=== PATIENT | male | born 1960 | race Caucasian/White ===

== ENCOUNTER 2023-11-05 05:29 | Inpatient (IN) | payer OTHER, SELFPAY ==
[2023-11-05] VITALS (32 sets, daily range): BP systolic 98–136; BP diastolic 53–94; PULSE 75–110; RESP 17–37; TEMP 36.1–36.7; O2SAT 77–100; BMI 38.0
--- NOTE | 2023-11-05 | ECHO_ITS ---
Patient Info Name: Joaquim Garcia Age: 63 years : 1960 Gender: Male Ht: 72 in Wt: 279 lbs BSA: 2.58 m2 HR: 93 bpm BP: 111 / 65 mmHg Heart Rhythm: Sinus Rhythm Technical Quality: Poor Exam Date: 11/05/2023 4:21 PM Exam Location: Echo Lab Patient Status: Inpatient Admit Date: 11/05/2023 Staff Ordering Physician: Ruchi Oliver APRN Cigarette Machines Mechanic: Jackson Martins RDCS Attending Provider: Monty White MD Referring Physician: Melody BURK; Exam Type: CA echo dop color flow w con Study Info Indications J90 - Pleural effusion, not elsewhere classified R06.02 - Shortness of breath - eLEVATED bnp Complete two-dimensional, color flow and Doppler transthoracic echocardiogram is performed with contrast to opacify the left ventricle and to improve the deliniation of the left ventricle endocardial borders. Contrast/Agitated Saline Contrast/Ag. Saline: Definity Amount: 3.00 ml Existing IV Access: Yes IV Access Condition: patent with no signs of infiltration Reason for Poor Study: poor patient cooperation Summary 1. Technically challenging exam, definity contrast used to improve visualization. 2. Left ventricular hypertrophy with well-preserved systolic function and grade 1 diastolic noncompliance. 3. Poorly visualized right ventricle which appears to be moderately enlarged. 4. Biatrial dilation. 5. Small amount of mitral and tricuspid regurgitation. Left Ventricle Left ventricular chamber dimension is normal. Left ventricular systolic function is normal, estimated at Empty. There is mild concentric increased left ventricular wall thickness. The left ventricular diastolic function is grade I diastolic dysfunction. Right Ventricle Right ventricular chamber dimension is moderately enlarged. Left Atria Left atrial chamber dimension is mildly enlarged. Right Atria Right atrial chamber dimension is mildly enlarged. Aortic Valve The aortic valve is normal. Pulmonic Valve The pulmonic valve is not well visualized. Mitral Valve The mitral valve has normal leaflets. The mitral valve annulus is mildly calcified. Tricuspid Valve The tricuspid valve leaflets are normal. There is mild tricuspid valve regurgitation. Pericardium/Pleural The pericardium appears normal. Aorta The aortic root size at the sinus of Valsalva is normal. Left Ventricular Outflow Tract Name Value Normal LVOT 2D LVOT Diameter 2.11 cm LVOT Doppler LVOT Peak Gradient 6 mmHg LVOT Mean Gradient 3 mmHg LVOT VTI 26.92 cm LVOT VTI/AV VTI Ratio 1.16 LVOT Stroke Volume 94.10 ml LVOT CO 7.49 l/min LVOT CI 2.90 L/min/m2 Pulmonic Valve Name Value Normal PV Doppler PV Peak Gradient 5 mmHg Mitral Valve
--- NOTE | ~2023-11-05 | US_ITS ---
EXAMINATION: US thoracentesis DATE: 11/05/2023 15:41 INDICATION: Right pleural effusion. Hypoxia. TECHNIQUE: The procedure and its risks and benefits were discussed with the patient. Potential risks discussed included bleeding, infection, and pneumothorax. The patient understood the risks and agreed to proceed. The skin was prepped and draped in sterile fashion. 1% lidocaine was used for local anes thesia. Under ultrasound guidance, a 5 Fr catheter with trochar was advanced into the right pleural e ffusion. Fluid was aspirated. The catheter was removed, and a dressing was applied. There were no imm ediate complications. FINDINGS: Ultrasound images demonstrate a small right pleural effusion and the catheter within the fluid. IMPRESSION: 1. Successful ultrasound-guided thoracentesis yielding 700 mL of clear yellow fluid. Reviewed, dictated and finalized at location A.
--- NOTE | ~2023-11-05 | XR_ITS ---
EXAMINATION: XR chest 1V portable DATE: 11/10/2023 10:25 INDICATION: Shortness of breath. High oxygen requirement. TECHNIQUE: A single frontal view of the chest was obtained. COMPARISON: Chest 2 view 11/07/2023, CT abdomen and pelvis 11/05/2023 FINDINGS: There are small pleural effusions. There are airspace opacities at the lung bases. No pneum othorax. The heart size is normal. IMPRESSION: 1. Small pleural effusions. 2. Airspace opacities at the lung bases with improvement on the right, likely atelectasis. Reviewed, dictated and finalized at location A. IMPRESSION: 1. Small pleural effusions. 2. Airspace opacities at the lung bases with improvement on the right, likely a telectasis.
--- NOTE | ~2023-11-05 | XR_ITS ---
EXAMINATION: XR chest 1V portable DATE: 11/15/2023 05:28 INDICATION: Atelectasis and pleural effusion TECHNIQUE: frontal view of the chest was obtained. COMPARISON: Chest radiograph dated 11/12/[address] dated 11/13/2023 FINDINGS: Decrease in the diffuse hazy opacities throughout the right hemithorax consistent with decreased now very small right pleural effusion. There is also a persistent very small left pleural effusion. There is also been some improved aeration in the previously collapsed right middle lobe. Residual opacitie s in the right middle lobe and at the left lower lung zone which could represent atelectasis or pneum onia. No pneumothorax. Heart size is within normal limits for AP technique. IMPRESSION: 1. Very small bilateral pleural effusions with interval decrease on the right. 2. Improved aeration of the previously collapsed right middle lobe with persistent opacity in the low er lung zones which could represent atelectasis or pneumonia. Reviewed, dictated and finalized at location A. IMPRESSION: 1. Very small bilateral pleural effusions with interval decrease on the right. 2. Improved aeration of the previously collapsed right middle lobe with persist ent opacity in the lower lung zones which could represent atelectasis or pneumo germaine.
--- NOTE | ~2023-11-05 | XR_ITS ---
EXAMINATION: XR chest 1V portable DATE: 11/07/2023 09:51 INDICATION: Pulmonary edema. TECHNIQUE: A single frontal view of the chest was obtained. COMPARISON: Chest single view 11/06/2023, CT abdomen and pelvis 11/05/2023 FINDINGS: There are airspace opacities in right middle lobe. There is mild atelectasis at left lung b ase. No pleural effusion or pneumothorax. The heart size is normal. IMPRESSION: 1. Persistent airspace opacities in right lung middle lobe, consistent with atelectasis versus pneumo germaine. Reviewed, dictated and finalized at location A. IMPRESSION: 1. Persistent airspace opacities in right lung middle lobe, consistent with ate lectasis versus pneumonia.
--- NOTE | ~2023-11-05 | CT_ITS ---
EXAMINATION: CT cervical spine wo con DATE: 11/05/2023 08:08 INDICATION: Neck pain after multiple falls. TECHNIQUE: Computed tomography (CT) of the cervical spine was performed without intravenous contrast. The dose-length product was 509 mGy-cm. Automated exposure control and iterative reconstruction tech nique were employed. COMPARISON: None FINDINGS: There is multilevel degenerative disc disease at C4-5, C5-6, C6-7 and C7-T1. There is degen erative anterolisthesis at C4-5. Mild levocurvature of the cervical spine. Odontoid process within no rmal limits. No evidence for perched facet. Craniovertebral junction within normal limits. Small righ t pleural effusion. IMPRESSION: 1. No acute abnormality of the cervical spine. 2: Right pleural effusion. Reviewed, dictated and finalized at location B.
--- NOTE | ~2023-11-05 | CT_ITS ---
EXAMINATION:CT diagnostic chest wo con DATE: 11/13/2023 13:51 INDICATION: Pleural effusion. TECHNIQUE: Computed tomography (CT) of the chest was performed without intravenous contrast. Automate d exposure control and iterative reconstruction technique were employed. The dose-length product (DLP ) was 591.98 mGy-cm. COMPARISON: Chest CT 11/05/2023 FINDINGS: There is complete collapse of right middle lobe. There is mild atelectasis bilaterally. The re is a pneumatocele left upper lobe. There are groundglass nodules in the lungs bilaterally with smo oth septal thickening, consistent with mild pulmonary edema. There are moderate-sized right and small left pleural effusions. Cardiomegaly is noted. There are coronary artery calcifications. No pericard ial effusion. There are gallstones in the gallbladder, which is normal in size. There is a 1.8 cm hem orrhagic cyst in left kidney. There is mild thoracic spondylosis. There are bridging endplate osteoph ytes at multiple levels in the spine, consistent with diffuse idiopathic skeletal hyperostosis (DISH) . IMPRESSION: 1. Mild pulmonary edema. 2. Worsened complete collapse of right middle lobe. 3. Moderate-sized right and small left pleural effusions. Reviewed, dictated and finalized at location A.
--- NOTE | ~2023-11-05 | XR_ITS ---
EXAMINATION: [id number] DATE: 11/05/2023 15:56 INDICATION: Right pleural effusion status post thoracentesis. TECHNIQUE: A single frontal view of the chest was obtained. COMPARISON: CT abdomen and pelvis 11/05/2023 FINDINGS: There are airspace opacities in right lower lung zone. No pleural effusion or pneumothorax. Cardiomegaly is noted. IMPRESSION: 1. Airspace opacities in right lower lung zone, consistent with atelectasis versus pneumonia. 2. Cardiomegaly. Reviewed, dictated and finalized at location A. IMPRESSION: 1. Airspace opacities in right lower lung zone, consistent with atelectasis kana yojana pneumonia. 2. Cardiomegaly.
--- NOTE | ~2023-11-05 | CT_ITS ---
EXAMINATION: CT BRAIN W/O DATE: 11/05/2023 08:08 INDICATION: Status post fall. Patient found down. TECHNIQUE: Computed tomography (CT) of the head was performed without intravenous contrast. The dose- length product was 605.33 mGy-cm. Automated exposure control and iterative reconstruction technique w ere employed. COMPARISON: No prior studies for comparison. FINDINGS: Normal brain parenchymal volume for age. Normal patton-white differentiation. No acute intrac ranial hemorrhage, infarction, mass or mass effect. No ventriculomegaly or midline shift. Midline sagittal images demonstrate a normal corpus callosum, c raniovertebral junction and sella turcica. Basilar cisterns are patent. Paranasal sinuses and mastoids are pneumatized. No depressed skull fractures. IMPRESSION: 1. No acute intracranial abnormality. Reviewed, dictated and finalized at location B.
--- NOTE | ~2023-11-05 | US_ITS ---
EXAMINATION: US abdomen limited DATE: 11/10/2023 16:49 INDICATION: Ascites TECHNIQUE: Multiple grayscale and Doppler ultrasound images of limited portions of the abdomen were o btained. COMPARISON: None available. FINDINGS: The visualized portions of the pancreas are normal. The liver is normal in size with slight ly heterogeneous echotexture. Suggestion of mild surface nodularity. Normal hepatopetal flow in the m ain portal vein. The gallbladder is minimally distended which limits evaluation. Shadowing dependent echogenicities in the gallbladder lumen likely representing stones. The common bile duct measures 6 m m. There was no sonographic Oneill sign. Small volume fluid in the right upper and left lower quadran ts. IMPRESSION: Possible cirrhotic changes. Cholelithiasis. Mild ascites. Reviewed, dictated and finalized at location K.
--- NOTE | ~2023-11-05 | CT_ITS ---
Clinical Indication: Shortness of breath CT Scan of the Chest with Contrast: Technique: Contiguous sections were acquired throughout the chest after intravenous administration of 100 cc of Omnipaque 350. Dose reduction technique was used on this scan by utilizing automated expos ure control and iterative reconstruction technique. The dose-length product (DLP) was 741.11 mGy-cm. Findings: There is no evidence of any significant mediastinal, hilar or axillary lymphadenopathy. There is no f illing defect in the pulmonary arterial tree to suggest pulmonary embolus. There is no evidence of ao rtic dissection or aneurysm. No pericardial effusion. Moderate right pleural effusion present, with right middle lobe atelectatic change. No left pleural e ffusion. Left lung clear. Images through the upper abdomen reveal small amount of abdominal ascites. Impression: No evidence of pulmonary embolus, aortic dissection, or aortic aneurysm. Moderate right pleural effusion with extensive right middle lobe atelectasis. Reviewed, dictated and finalized at [facility]. Impression: No evidence of pulmonary embolus, aortic dissection, or aortic aneurysm. Moderate right pleural effusion with extensive right middle lobe atelectasis.
--- NOTE | ~2023-11-05 | XR_ITS ---
Portable chest x-ray Comparison: 11/10/2023 Clinical History: Pleural effusion Findings: Triangular shaped opacity in the right parietal region suggests atelectasis or possibly fl uid in the fissure. There is additional small right pleural effusion present. Possible underlying [employer] D. Cardiomediastinal silhouette is stable. Bones and soft tissues are unremarkable. Impression: Small right pleural effusion with possible right middle lobe atelectatic change. Possible underlying COPD. Reviewed, dictated and finalized at location M. Impression: Small right pleural effusion with possible right middle lobe atelectatic change . Possible underlying COPD.
--- NOTE | ~2023-11-05 | CT_ITS ---
Non-contrast CT scan of the Abdomen and Pelvis Clinical indication: Abdominal distention Technique: 2.5 mm axial scans were obtained through the abdomen and pelvis without intravenous or or al contrast. Dose reduction technique was used on this scan by utilizing automated exposure control a nd iterative reconstruction technique. The dose-length product (DLP) was 1492.06 mGy-cm. Findings: Images through the lung bases reveal moderate right pleural effusion. There is no evidence of renal or ureteral calculi. The kidneys and the ureters are nondilated. Questi onable 4.6 x 3.0 cm fat attenuation lesion just medial to left kidney (axial image 81). The liver, spleen, pancreas, and adrenals appear normal. Small gallstone present. There are atheroscl erotic calcifications of the aorta. . There is no evidence of bowel obstruction. Images through the pelvis were performed. Moderate abdominopelvic ascites present. Urinary bladder un remarkable. No pelvic mass. Impression: Moderate abdominopelvic ascites. Moderate pleural effusion. Questionable 4.6 x 3.0 cm fat attenuation lesion just medial to the left kidney. Consider follow-up e xam in 6 months to one year to reassess. Reviewed, dictated and finalized at location . Impression: Moderate abdominopelvic ascites. Moderate pleural effusion. Questionable 4.6 x 3.0 cm fat attenuation lesion just medial to the left kidney . Consider follow-up exam in 6 months to one year to reassess.
--- NOTE | ~2023-11-05 | XR_ITS ---
Portable chest x-ray Comparison: 11/05/2023 Clinical History: Shortness of breath Findings: There is probable worsening hazy bibasilar airspace disease. No definite pleural effusion. Cardiomediastinal silhouette is stable. Bones and soft tissues are unremarkable. Impression: Probable mild worsening bibasilar pulmonary edema. Correlate clinically for infection. Reviewed, dictated and finalized at [facility]. Impression: Probable mild worsening bibasilar pulmonary edema. Correlate clinically for inf ection.
--- NOTE | 2023-11-05 05:50 | ECG_ITS ---
Test Date: 2023-11-05 06:32:10 Measurements Intervals Altha Rate: 83 P: 44 DE: 158 QRS: 243 QRSD: 99 T: 83 QT: 387 QTc: 457 Interpretive Statements SINUS RHYTHM WITH MARKED SINUS ARRHYTHMIA RIGHT AXIS DEVIATION LOW QRS VOLTAGE IN LIMB LEADS BORDERLINE T WAVE ABNORMALITY- HIGH LATERAL LEADS BASELINE ARTIFACT- I, II, III, AVR BORDERLINE ECG No previous ECG available for comparison Electronically Signed On 11-05-2023 07:42:49 CDT by Emmett Mayfield D.O.
--- NOTE | 2023-11-05 05:52 | PC.NURSE ---
Pt to CT at this time.
[2023-11-05 05:58] LABS: Basophils Absolute Auto 0.1 K/mm3 (0.0-0.1); Basophils Percent Auto 0.6 % (0.2-1.2); Eosinophils Percent Auto 0.2 % (0-4.4); Hematocrit 44.8 % (42.0-52.0); Hemoglobin 13.2 g/dL (14.0-18.0); Immature Granulocyte Absolute 0.05 K/mm3 (0.00-0.031); Immature Granulocyte Percent A 0.5 % (0-0.5); Lymphocytes Absolute Auto 0.74 K/mm3 (0.9-3.2); Lymphocytes Percent Auto 7.1 % (18.3-44.2); Mean Corpuscular HGB Conc 29.5 g/dl (32-36); Mean Corpuscular Hemoglobin 25.9 pg (26-34); Monocytes Absolute Auto 0.7 K/mm3 (0.1-0.6); Monocytes Percent Auto 6.5 % (2.6-8.5); Neutrophils Absolute Auto 8.8 K/mm3 (1.3-6.7); Neutrophils Percent Auto 85.1 % (45.5-73.1); Platelet Count Result 260 k/mm3 (150-375); Red Blood Count 5.09 M/mm3 (4.6-6.20); Red Cell Distribution Width 16.8 % (11.5-14.5); White Blood Count 10.4 K/mm3 (4.5-10.0)
[2023-11-05 06:13] LABS: Potassium 4.4 mmol/L (3.4-5.0)
[2023-11-05 06:17] LABS: Alanine Aminotransferase 13 U/L (6-50); Albumin Level 3.9 g/dL (3.5-5.1); Alkaline Phosphatase 96 U/L (38-126); Anion Gap 7 mmol/L (4-12); Aspartate Amino Transferase 31 U/L (17-59); Bilirubin,Total 0.6 mg/dL (0.2-1.3); Blood Urea Nitrogen 32 mg/dL (9-20); Calcium 8.9 mg/dL (8.4-10.2); Carbon Dioxide 35 mmol/L (22-30); Chloride 97 mmol/L (98-107); Estimated CRCL calculation 42 ml/min; Estimated Glomerular Filt Rate 29; Glucose < 30 mg/dL (65-110); Sodium 139 mmol/L (137-145)
[2023-11-05 06:21] LABS: Glucose Point of Care < 20 mg/dl (65-105)
[2023-11-05 06:22] LABS: Platelet Estimate Adequate (Adequate); Schistocytes None Seen; Stomatocytes 1+
[2023-11-05] MEDS: DEXTROSE 50% 25 GM/50 ML SYRINGE IV PUSH ×3 (06:22→08:20)
[2023-11-05 06:43] LABS: Creatine Kinase 155 U/L (55-170)
--- NOTE | 2023-11-05 06:48 | ED.GENADULT ---
HPI - General Adult General Chief complaint: Shortness of Breath/Dyspnea <Johnnie Chanel MD - Last Filed: 11/05/23 07:54> Stated complaint: Sob, Weakness <Johnnie Chanel MD - Last Filed: 11/05/23 07:54> Time Seen by Provider: 11/05/23 06:02 <Johnnie Chanel MD - Last Filed: 11/05/23 07:54> History of Present Illness HPI narrative: This is a 63-year-old male with past medical history diabetes hypertension hyperlipidemia presenting from home via EMS for difficulty breathing. Patient says he has been having difficulty breathing for the last 2 days. He has had a productive cough with yellow sputum. He has had multiple falls because he has been feeling dizzy when he stands up. EMS has had visits up several times assisted back up. When they arrived the last time the found to be hypoxic on room air. He required 15 L non-rebreather to get him up to the mid 90s. At this time patient denies fevers chills chest pain abdominal pain, nausea vomiting diarrhea. <Johnnie Chanel MD - Last Filed: 11/05/23 07:54> Related Data Home medications: Home Medications Medication Instructions Recorded Confirmed amlodipine 10 mg tablet mg 11/05/23 11/05/23 atorvastatin 40 mg tablet mg 11/05/23 enalapril maleate 20 mg tablet mg 11/05/23 glyburide 5 mg tablet mg 11/05/23 hydrochlorothiazide 25 mg tablet mg 11/05/23 metformin 1,000 mg tablet mg 11/05/23 pioglitazone 45 mg tablet mg 11/05/23 <Johnnie Chanel MD - Last Filed: 11/05/23 07:54> Allergies/adverse reactions: Allergies Allergy/AdvReac Type Severity Reaction Status Date / Time No Known Allergies Allergy Verified 11/05/23 05:48 <Johnnie Chanel MD - Last Filed: 11/05/23 07:54> Exam Narrative: APPEARANCE: No apparent distress. Head: atraumatic. EYES: EOMI, NOSE: Atraumatic NECK: Trachea midline RESPIRATORY: Wheezing in all king, decreased lung sounds lower right CARDIOVASCULAR: RRR, pitting edema of the legs and abdomen. Swelling of the scrotum ABDOMINAL: Distended, nontender no guarding or rebound MUSCULOSKELETAl: No obvious deformities NEURO: Alert. Moving 4/4 extremities SKIN:: Fungal infection of the patient's groin PSYCHIATRIC: Normal affect <Johnnie Chanel MD - Last Filed: 11/05/23 07:54> Course Reevaluation(s) Reevaluation #1: Patient now resting comfortably on the BiPAP, speaking full sentences, alert and in no distress. Started on D5 drip give persistent low glucose, I did talk to the patient again and he states that he is on metformin, pioglitazone, Lipitor, and a couple other medications he cannot recall. CT shows ascites and right pleural effusion, discussed with radiologist for thoracentesis, the hospitalist for admission to IM. CBC shows WBCs as only very minimally elevated, given the pleural effusion I did opt to start him on antibiotics for suspected pneumonia. Creatinine is elevated at 2.3 however we have no baseline, troponin is also elevated at 0.26 however so was the BNP, and I suspect if the patient has been hypoxic for a while this may explain the abnormalities in lab. EKG shows normal sinus rhythm with right axis deviation, rate 85, no obvious signs of ST elevations on my independent interpretation. At time of transfer upstairs patient in no distress, though he hates the BiPAP mask and keeps trying to pull it off. Oxygen does drop when he is off the BiPAP so I do believe this is still necessary and he needs to be in IMU. <Jess Mcgarry MD - Last Filed: 11/05/23 11:03> Vital Signs Vital signs: Vital Signs Temperature 98.0 F 11/05/23 05:30 Pulse Rate 91 11/05/23 05:30 Respiratory Rate 26 H 11/05/23 05:30 Blood Pressure 136/80 11/05/23 05:30 Pulse Oximetry 100 11/05/23 05:30 Oxygen Delivery Non-Rebreather Mask 11/05/23 05:30 Oxygen Flow Rate 15 11/05/23 05:30 Temperature 98.0 F 11/05/23 05:30 Pulse Rate 88 11/05/23 10:35 Respiratory Rate 18 0
[2023-11-05 06:59] LABS: Glucose Point of Care 101 mg/dl (65-105)
[2023-11-05 06:59] LABS: Glucose Point of Care 69 mg/dl (65-105)
[2023-11-05 07:15] LABS: Alveolar/Arterial O2 Gradient 142.1 mmHg; Base Excess ABG 4.3 mEq/l (+/-2.0); Carboxyhemoglobin 5.6 % THb (0-2.0); Fractional Inspired Oxygen 40 %; HCO3 ABG 33.2 mEq/l (22.0-26.0); Methemoglobin ABG 0.1 %THb (0-1.5); Oxygen Content ABG 15.2 %vol (16.0-22.0); PO2 ABG 60.1 mmHg (80.0-100.0); Reduced Hemoglobin 11.2 %THb (0-5.0)
[2023-11-05 07:16] LABS: PCO2 ABG 72.2 mmHg (35.0-45.0)
--- NOTE | 2023-11-05 07:16 | PC.NURSE ---
Bedside report given to Aggie rn and manuel sanchez at this time.
[2023-11-05 07:17] LABS: Oxygen Saturation ABG 86.8 % (95.0-100.0); Oxyhemoglobin 83.1 % THb (90.0-100.0)
[2023-11-05 07:18] LABS: Device NASAL CANNULA; Modified Allen's Test Pass; Site Drawn RIGHT RADIAL
[2023-11-05 08:01] LABS: NT Pro B Type Natriuretic Pept 16000 pg/mL (19.9-100)
[2023-11-05] MEDS: MAGNESIUM SULF 2 GM/WATER 50ML 2 GM/50 ML BAG IVPB (08:11)
[2023-11-05] MEDS: dexAMETHasone SOD PHOS INJ 10 MG/ML 1 ML VIAL IV PUSH (08:13)
[2023-11-05 08:18] LABS: Glucose Point of Care 59 mg/dl (65-105)
[2023-11-05] MEDS: IPRATROPIUM 0.5 MG/ALBUTEROL SULFATE 2.5 MG AMPUL.NEB 3 ML 12 ML INHALATION (08:31)
--- NOTE | 2023-11-05 08:35 | ECG_ITS ---
Test Date: 2023-11-05 08:54:36 Measurements Intervals Morrow Rate: 85 P: 76 IL: 173 QRS: 210 QRSD: 95 T: 89 QT: 392 QTc: 468 Interpretive Statements SINUS RHYTHM RIGHT AXIS DEVIATION INCOMPLETE RIGHT BUNDLE BRANCH BLOCK DELAYED PRECORDIAL R/S TRANSITION BORDERLINE T WAVE ABNORMALITY- HIGH LATERAL LEADS BORDERLINE ECG Compared to ECG 11/05/2023 06:32:10 NO SIGNIFICANT CHANGE Electronically Signed On 11-05-2023 09:38:20 CDT by Emmett Mayfield D.O.
[2023-11-05] MEDS: cefTRIAXone 2 GM/NS 100 ML 2 GM/100 ML BAG IVPB (08:46)
[2023-11-05 08:49] LABS: Troponin I 0.245 ng/mL (0.000-0.034)
[2023-11-05 08:50] LABS: Influenza A QL RT-PCR Negative (Negative); Influenza B QL RT-PCR Negative (Negative); RSV RNA, RT-PCR Negative (Negative); SARS-CoV-2 RNA PCR Negative (Negative)
[2023-11-05 09:12] LABS: Glucose Point of Care 82 mg/dl (65-105)
[2023-11-05] MEDS: AZITHROMYCIN 500 MG/NS 250 ML 500 MG/250 ML BAG 250 MG IVPB (09:24)
[2023-11-05 10:14] LABS: Glucose Point of Care 78 mg/dl (65-105)
[2023-11-05 10:32] LABS: Amylase 50 U/L (30-110); Cholesterol 93 mg/dL (0-200); Lactate Dehydrogenase 227 U/L (120-246)
[2023-11-05 10:33] LABS: Triglycerides 105 mg/dL (<150)
[2023-11-05 10:37] LABS: INR 1.2; Partial Thromboplastin Time 33.9 Seconds (22.3-36.8)
--- NOTE | 2023-11-05 12:29 | ADMGEN ---
1115: This patient, Joaquim Garcia, was admitted to IMU Room 205-01 from ED on bipap. Patient oriented to hospital policies and general routines including ID bracelet, bed and alarms, visiting hours, pain management, procedures, bathroom and other care routines, personal items, smoking policy, room service/diet, and visiting hours. Has his phone and glasses at bedside. Denies pain. Information on how to activate the Rapid Response Team has been discussed. Patient encouraged to report perceived risks to care and to ask questions if they do not understand what they are told or what they should do.
--- NOTE | 2023-11-05 12:48 | PM.IMHP ---
H&P: HPI History of Present Illness Date/Time: 11/05/23 12:48 Chief Complaint: Shortness of Breath and Weakness Narrative: 63 y/o M presents here with shortness of breath and generalized weakness with PMH of HLD, HTN, sleep apnea, GERD, and diabetes. The patient presents here via EMS for further evaluation of shortness of breath and generalized weakness. Patient reports onset of symptoms approximately 1 week ago. He reports that he has been becoming increasingly short of breath over the last 4 months, however significantly worsened over the last week. Prior to EMS transport to the emergency department, they had been to patient's residence 2 times in the last 24 hours for a lift assist. However at the most recent call, patient was 78% on room air, 98% on non-rebreather. Now maintaining oxygen saturation on BiPAP. Patient also reports shortness of breath and weakness is accompanied by productive cough yielding yellow/brown sputum. Denies fever, chills, body aches. Patient also endorsing new BLE edema and decreased appetite which started within the last 2 days. Initial VS at presentation: 98? F, HR 91, RR 26, 136/80, and 100% on NRB. Now on BiPAP. ED workup showed: WBC 10.4, hemoglobin 13.2, INR 1.2, ABG showed pH of 7.28, CO2 72.2, HC03 33.2, sat 6.8 on 5 L NC, creatinine 2.3 and GFR 29 (no previous available for comparison), and initial glucose 30 on chemistry, initial troponin 0.245, BNP 60738, and viral PCR negative. Head CT showed no acute intracranial abnormality. CT of the abdomen/pelvis showed moderate abdominal pelvic ascites, moderate pleural effusion, questionable 4.6 x 3 cm fat attenuation lesion just medial to the left kidney. C-spine CT showed for no acute osseous abnormality of the C-spine and a right pleural effusion. Chest CTA showed no PE, dissection, aneurysm, and moderate right pleural effusion with extensive right middle lobe atelectasis. Review of Systems Review of Systems: All systems reviewed & are unremarkable except as noted in HPI and below PMFSH Past Medical History Medical History Diabetes GERD (gastroesophageal reflux disease) HLD (hyperlipidemia) HTN (hypertension) Sleep apnea Surgical History Surgical History History of tonsillectomy Family History Family History Father Congestive heart failure Heart problem Mother Heart problem Sibling Heart problem Diabetes mellitus Social History Social History Smoking packs per day: 2 Smoking cigarettes per day: 40.0 Years smoked: 40 Smoking pack-years: 80.00 Smoking status: Current every day smoker Tobacco type: cigarettes Second hand tobacco smoke exposure: No Alcohol intake: former Substance use: never Substance use type: does not use Do You Feel Safe in your Home?: Yes Lack of Transportation: No Lack of Food: Never True Current Housing: I Have Housing Concerned About Future Housing: No Difficulty Paying Gas/Electric Bills: No Difficulty Paying for Meds: No Currently Unemployed: No Education: High School Diploma/GED Difficulty w/ Childcare or Family Care: No Spiritual care concerns: No Meds Home Medications and Allergies Home Medications Medication Instructions Recorded Confirmed Type amlodipine 10 mg tablet 10 mg PO DAILY 11/05/23 11/05/23 History atorvastatin 40 mg tablet 40 mg PO DAILY 11/05/23 11/05/23 History enalapril maleate 20 mg tablet 20 mg PO DAILY 11/05/23 11/05/23 History glyburide 5 mg tablet 5 mg PO BIDWM 11/05/23 11/05/23 History hydrochlorothiazide 25 mg tablet 25 mg PO DAILY 11/05/23 11/05/23 History metformin 1,000 mg tablet 1,000 mg PO BIDWM 11/05/23 11/05/23 History pioglitazone 45 mg tablet 45 mg PO DAILY 11/05/23 11/05/23 History Aller
[2023-11-05 13:16] LABS: Alveolar/Arterial O2 Gradient 204.4 mmHg; Base Excess ABG 1.7 mEq/l (+/-2.0); Fractional Inspired Oxygen 50 %; Oxygen Saturation ABG 93.5 % (95.0-100.0); Oxyhemoglobin 91.9 % THb (90.0-100.0); PO2 FiO2 Ratio Arterial Blood 1.56 %; Total Hemoglobin 12.3 g/dL (12.0-18.0)
[2023-11-05 13:17] LABS: Device NON-INVASIVE VENT; Modified Allen's Test Pass; PCO2 ABG 65.9 mmHg (35.0-45.0); Site Drawn LEFT RADIAL; pH ABG 7.276 (7.350-7.450)
[2023-11-05 13:18] LABS: Non-Invasive Expiratory Pressure 8 CMH2O; Non-Invasive Inspiratory Pressure 18 CMH2O; Non-Invasive Vent Rate 16 /MIN
[2023-11-05 13:25] LABS: Glucose Point of Care 80 mg/dl (65-105)
[2023-11-05] MEDS: TOLNAFTATE 1% POWDER 45 GM BTL 1 APPLIC TOPICAL ×2 (13:30→20:33)
[2023-11-05] MEDS: FUROSEMIDE INJ 40 MG/4 ML VIAL IV PUSH (13:35)
[2023-11-05 15:40] LABS: pH Pleural Fluid 7.424 (7.210-7.500)
[2023-11-05 15:55] LABS: Appearance Pleural Fluid Hazy (Clear); Color Pleural Fluid Yellow (Colorless); Pleural fluid source Pleural fluid
[2023-11-05 15:56] LABS: Lymphocytes Pleural Fluid 23 %; Macrophages Pleural Fluid 44 %; Mesothelial Cells Pleural Flui 14 %; Monocytes Pleural Fluid 13 %; Neutrophils Pleural Fluid 6 % (0-25); Nucleated Cell Pleural Fluid 306 /uL (0-1000); RBC Pleural Fluid 1000 /uL (0-10000)
--- NOTE | 2023-11-05 16:12 | PC.NURSE ---
[id number] Pt to US dept for R thoracentesis-via bed with BIPAP- accompanied by RN and RT- returned to room- post PCXR completed- pt NPO post procedure for 2hrs
[2023-11-05 16:13] LABS: Add Urine Microscopic? YES; Appearance Urine Cloudy (Clear); Bacteria Urine None Seen /hpf; Bilirubin Urine Negative (Negative); Blood Urine Negative (Negative); Color Urine Dark Yellow (Yellow); Glucose Urine UA Negative (Negative); Hyaline Casts Urine Present /lpf; Ketones Urine Trace mg/dL (Negative); Leukocyte Esterase Ur Negative LEU/UL (Negative); Nitrate Urine Negative (Negative); Non Pathogenic Casts >20; Protein Urine 1+ mg/dL (Negative); RBC Urine 0-2 /hpf (0-2); Specific Grav Ur 1.029 (1.001-1.035); Squamous Epithelial Cell Urine Moderate /hpf (Few); WBC Urine 0-5 /hpf (0-3)
[2023-11-05 16:15] LABS: Glucose Point of Care 78 mg/dl (65-105)
[2023-11-05] MEDS: PERFLUTREN LIPID MICROSPHERES 1.5 ML VIAL DILUTED TO 10 ML TOTAL VOLUME IV PUSH (17:20)
--- NOTE | 2023-11-05 17:20 | IVDEFINITY ---
Prior to administration of IV Definity the patient was educated on the risks and benefits of the imaging enhancing agent including potential adverse side effects. The patient verbalized understanding. Allergies were verified. No exclusion criteria were identified and at least one of the following inclusion criteria were met: 1) physician request, 2) patient technically difficult to image (per the [place] [employer] guidelines of two or more segments not discernable within the apical view), or 3) questionable left ventricular function. ?
[2023-11-05 17:24] LABS: Glucose Point of Care 96 mg/dl (65-105)
[2023-11-05 17:39] LABS: Base Excess ABG 5.8 mEq/l (+/-2.0); Device NON-INVASIVE VENT; Fractional Inspired Oxygen 40 %; HCO3 ABG 31.8 mEq/l (22.0-26.0); Modified Allen's Test Pass; Oxygen Content ABG 15.6 %vol (16.0-22.0); Oxygen Saturation ABG 94.2 % (95.0-100.0); Oxyhemoglobin 92.4 % THb (90.0-100.0); PCO2 ABG 52.7 mmHg (35.0-45.0); PO2 ABG 71.6 mmHg (80.0-100.0); PO2 FiO2 Ratio Arterial Blood 1.79 %; Site Drawn LEFT RADIAL; pH ABG 7.399 (7.350-7.450)
[2023-11-05 17:40] LABS: Non-Invasive Expiratory Pressure 8 CMH2O; Non-Invasive Inspiratory Pressure 18 CMH2O; Non-Invasive Vent Rate 16 /MIN
[2023-11-05] MEDS: TAMSULOSIN HCL 0.4 MG CAPSULE PO (18:30)
[2023-11-05 20:53] LABS: Glucose Point of Care 238 mg/dl (65-105)
[2023-11-05] MEDS: IPRATROPIUM 0.5 MG/ALBUTEROL SULFATE 2.5 MG AMPUL.NEB 3 ML INHALATION (20:58)
[2023-11-06] VITALS (27 sets, daily range): BP systolic 99–138; BP diastolic 44–73; PULSE 68–98; RESP 18–27; TEMP 36.1–36.6; O2SAT 88–100; BMI 38.0
[2023-11-06] MEDS: IPRATROPIUM 0.5 MG/ALBUTEROL SULFATE 2.5 MG AMPUL.NEB 3 ML INHALATION ×4 (03:04→20:06)
[2023-11-06 03:34] LABS: Glucose Point of Care 184 mg/dl (65-105)
[2023-11-06 04:06] LABS: Alveolar/Arterial O2 Gradient 163.7 mmHg; Base Excess ABG 6.8 mEq/l (+/-2.0); Fractional Inspired Oxygen 45 %; HCO3 ABG 33.8 mEq/l (22.0-26.0); Oxygen Content ABG 15.8 %vol (16.0-22.0); Oxygen Saturation ABG 96.3 % (95.0-100.0); Oxyhemoglobin 95.2 % THb (90.0-100.0); PO2 ABG 88.7 mmHg (80.0-100.0); PO2 FiO2 Ratio Arterial Blood 1.97 %; Total Hemoglobin 11.7 g/dL (12.0-18.0); pH ABG 7.367 (7.350-7.450)
[2023-11-06 04:09] LABS: Device BIPAP; Modified Allen's Test Pass; PCO2 ABG 60.2 mmHg (35.0-45.0); Site Drawn RIGHT RADIAL
[2023-11-06 04:10] LABS: Expiratory Pressure 8 cmH2O; Inspiratory Pressure 18 cmH2O
[2023-11-06 05:31] LABS: Basophils Percent Auto 0.2 % (0.2-1.2); Hematocrit 36.6 % (42.0-52.0); Hemoglobin 10.8 g/dL (14.0-18.0); Immature Granulocyte Absolute 0.04 K/mm3 (0.00-0.031); Immature Granulocyte Percent A 0.4 % (0-0.5); Lymphocytes Absolute Auto 0.69 K/mm3 (0.9-3.2); Lymphocytes Percent Auto 6.7 % (18.3-44.2); Mean Corpuscular HGB Conc 29.5 g/dl (32-36); Mean Corpuscular Hemoglobin 25.9 pg (26-34); Mean Corpuscular Volume 87.8 fl (80-100); Mean Platelet Volume 9.4 fl (7.4-10.4); Monocytes Absolute Auto 1.1 K/mm3 (0.1-0.6); Monocytes Percent Auto 10.4 % (2.6-8.5); Neutrophils Absolute Auto 8.5 K/mm3 (1.3-6.7); Neutrophils Percent Auto 82.3 % (45.5-73.1); Platelet Count Result 196 k/mm3 (150-375); Red Blood Count 4.17 M/mm3 (4.6-6.20); Red Cell Distribution Width 16.7 % (11.5-14.5); White Blood Count 10.3 K/mm3 (4.5-10.0)
[2023-11-06 05:37] LABS: Hemoglobin A1C 9.2 % (<5.7)
--- NOTE | 2023-11-06 05:38 | PCRCNOTE ---
Sputum sample obtained without given 7% NACL.
[2023-11-06 05:43] LABS: Alanine Aminotransferase 13 U/L (6-50); Albumin Level 3.3 g/dL (3.5-5.1); Alkaline Phosphatase 87 U/L (38-126); Anion Gap 9 mmol/L (4-12); Aspartate Amino Transferase 24 U/L (17-59); Bilirubin,Total 0.4 mg/dL (0.2-1.3); Blood Urea Nitrogen 37 mg/dL (9-20); Calcium 8.5 mg/dL (8.4-10.2); Carbon Dioxide 31 mmol/L (22-30); Chloride 97 mmol/L (98-107); Estimated CRCL calculation 42 ml/min; Estimated Glomerular Filt Rate 29; Glucose 172 mg/dL (65-110); Potassium 4.5 mmol/L (3.4-5.0); Sodium 137 mmol/L (137-145)
[2023-11-06 06:13] LABS: Anisocytosis 1+; Hypochromasia 1+; Platelet Estimate Adequate (Adequate); Schistocytes None Seen
[2023-11-06 06:50] LABS: Glucose Point of Care 154 mg/dl (65-105)
[2023-11-06] MEDS: ATORVASTATIN 40 MG TABLET PO (08:48)
[2023-11-06] MEDS: predniSONE 20 MG TABLET 40 MG PO (08:48)
[2023-11-06] MEDS: TAMSULOSIN HCL 0.4 MG CAPSULE PO (08:48)
[2023-11-06] MEDS: AZITHROMYCIN 500 MG/NS 250 ML 500 MG/250 ML BAG 250 MG IVPB (08:48)
[2023-11-06] MEDS: TOLNAFTATE 1% POWDER 45 GM BTL 1 APPLIC TOPICAL ×2 (08:48→21:04)
[2023-11-06 10:41] LABS: Lactate Dehydrogenase 224 U/L (120-246)
[2023-11-06] MEDS: FUROSEMIDE INJ 40 MG/4 ML VIAL IV PUSH (12:33)
[2023-11-06 14:38] LABS: Glucose Point of Care 188 mg/dl (65-105)
[2023-11-06 16:53] LABS: Glucose Point of Care 355 mg/dl (65-105)
--- NOTE | 2023-11-06 17:46 | PM.IMPN ---
Progress Note: A&P Assessment and Plan (1) Acute respiratory failure with hypoxia and hypercapnia: Code(s): J96.01 - Acute respiratory failure with hypoxia; J96.02 - Acute respiratory failure with hypercapnia Status: Acute Assessment and Plan: - chest CTA: No evidence of pulmonary embolus, aortic dissection, or aortic aneurysm. Moderate right pleural effusion with extensive right middle lobe atelectasis. likely from pulm edema CXR this morning showed worsening pulm edema - s/p BiPAP on 16 liters oxygen - patient everyday smoker, started on nebulizers scheduled and oral steroids. Suspect patient has underlying COPD. (2) Pleural effusion: Code(s): J90 - Pleural effusion, not elsewhere classified Status: Acute Assessment and Plan: - CTA showing a moderate right pleural effusion - plan for diagnostic thoracentesis this afternoon - BNP 16,000 ECHO showed grade I diastolic dysfunction Continue Lasix S/p thoracentesis and follow up with pleural fluid studies (3) Abdominal ascites: Qualifiers: Ascites type: other type Qualified Code(s): R18.8 - Other ascites Code(s): R18.8 - Other ascites Status: Acute Assessment and Plan: - CT abdomen/pelvis: Moderate abdominopelvic ascites. Moderate pleural effusion. Questionable 4.6 x 3.0 cm fat attenuation lesion just medial to the left kidney. Consider follow-up exam in 6 months to one year to reassess. - total bilirubin, AST, ALT, alk phos WNL - suspect ascites related to volume overload/suspected new onset CHF. Echo ordered and diuretics initiated. However given questionable lesion dose penal to left kidney, cannot exclude malignant ascites. continue lasix and monitor renal function (4) Diabetes: Qualifiers: Diabetes mellitus type: type 2 Diabetes mellitus fdc insulin use: without long term care pharmacist use Diabetes mellitus complication status: with hypoglycemia Diabetes mellitus complication detail: without coma Qualified Code(s): E11.649 - Type 2 diabetes mellitus with hypoglycemia without coma Code(s): E11.9 - Type 2 diabetes mellitus without complications Status: Acute Assessment and Plan: Hypoglycemia in setting of diabetes. Initial glucose upon arrival 30 on CMP around 0600, given dextrose 25G and 12.5G. recurrent hypoglycemia with BS of at 0800, given 25G of dextrose. SSI with accucheks, and adjust with clinical course (5) Urinary retention: Code(s): R33.9 - Retention of urine, unspecified Status: Acute Assessment and Plan: - patient has been given lasix with no UOP, bladder scan showing 500+ mL - place lazcano, patient reported to bedside RN that he will not likely keep it in place - UA w/reflex added - flomax daily initiated - will need follow-up with urology outpatient if fails voiding trial (6) HTN (hypertension): Qualifiers: Hypertension type: primary hypertension Qualified Code(s): I10 - Essential (primary) hypertension Code(s): I10 - Essential (primary) hypertension Status: Chronic Assessment and Plan: - chronic, currently 111/65 hold home meds and titrate with clinical course (7) Sleep apnea: Qualifiers: Sleep apnea type: unspecified type Qualified Code(s): G47.30 - Sleep apnea, unspecified Code(s): G47.30 - Sleep apnea, unspecified Status: Chronic Assessment and Plan: - continue home CPAP Plan Diet: NPO, heart healthy after thoracentesis GI Prophylaxis: Not indicated DVT Prophylaxis: Sq lovenox Lines: Peripheral Code Status: Full Code Subjective Date/time seen: 11/06/23 17:46 Interval history: Comfortable at bedside, still on 16 liters oxygen Review of Systems Review of Systems: All systems reviewed & are unremarkable except as noted in HPI and below Exam Narrative: General: alert and comfortable Eyes: EO
[2023-11-06] MEDS: INSULIN ASPART (*BKC) 100 UNITS/ML SUB-Q (17:58)
[2023-11-06 19:59] LABS: Glucose Point of Care 449 mg/dl (65-105)
--- NOTE | 2023-11-06 20:43 | PM.EVENT ---
Event Note Event Note Event Note: Cross coverage: Patient hyperglycemic this evening despite dinnertime sliding scale, most recent sugar 449. On low-dose corrective. However patient has been placed on steroids, will increase sliding scale to moderate dosing and give 11 units of subQ regular insulin now for hyperglycemia. Patient also requesting something for sleep, melatonin added.
[2023-11-06] MEDS: MELATONIN 3 MG TABLET PO (21:04)
[2023-11-06] MEDS: INSULIN HUMAN REGULAR (*BKC) 100 UNITS/ML 11 UNITS SUB-Q (22:01)
[2023-11-07] VITALS (29 sets, daily range): BP systolic 105–120; BP diastolic 51–82; PULSE 63–95; RESP 16–22; TEMP 36.3–36.8; O2SAT 90–99
[2023-11-07] MEDS: IPRATROPIUM 0.5 MG/ALBUTEROL SULFATE 2.5 MG AMPUL.NEB 3 ML INHALATION ×4 (01:18→20:31)
--- NOTE | 2023-11-07 05:31 | PC.NURSE ---
Patient wore bipap for 6+ hours overnight ([id number].)
[2023-11-07] MEDS: SODIUM CHLOR 3% 15 ML NEB (RESPIRATORY THERAPY) 6 ML INHALATION (05:57)
[2023-11-07 08:14] LABS: Glucose Point of Care 124 mg/dl (65-105)
[2023-11-07] MEDS: TAMSULOSIN HCL 0.4 MG CAPSULE PO (08:59)
[2023-11-07] MEDS: hydroCHLOROthiazide 25 MG TABLET PO (08:59)
[2023-11-07] MEDS: ENALAPRIL MALEATE 10 MG TABLET 20 MG PO (08:59)
[2023-11-07] MEDS: ATORVASTATIN 40 MG TABLET PO (09:00)
[2023-11-07] MEDS: FUROSEMIDE INJ 40 MG/4 ML VIAL IV PUSH ×2 (09:00→16:54)
[2023-11-07] MEDS: amLODIPine BESYLATE 10 MG TABLET PO (09:00)
[2023-11-07] MEDS: ENOXAPARIN 40 MG/0.4 ML SYRINGE SUB-Q (09:01)
[2023-11-07] MEDS: TOLNAFTATE 1% POWDER 45 GM BTL 1 APPLIC TOPICAL ×2 (11:28→21:05)
[2023-11-07] MEDS: AZITHROMYCIN 500 MG/NS 250 ML 500 MG/250 ML BAG 250 MG IVPB (11:28)
[2023-11-07 12:28] LABS: Glucose Point of Care 182 mg/dl (65-105)
--- NOTE | 2023-11-07 13:39 | PM.IMPN ---
Progress Note: A&P Assessment and Plan (1) Acute respiratory failure with hypoxia and hypercapnia: Code(s): J96.01 - Acute respiratory failure with hypoxia; J96.02 - Acute respiratory failure with hypercapnia Status: Acute Assessment and Plan: - chest CTA: No evidence of pulmonary embolus, aortic dissection, or aortic aneurysm. Moderate right pleural effusion with extensive right middle lobe atelectasis. likely from pulm edema CXR this morning showed worsening pulm edema - s/p BiPAP on 16 liters oxygen - patient everyday smoker, started on nebulizers scheduled and inhaled seroid (2) Pleural effusion: Code(s): J90 - Pleural effusion, not elsewhere classified Status: Acute Assessment and Plan: - CTA showing a moderate right pleural effusion - plan for diagnostic thoracentesis this afternoon - BNP 16,000 ECHO showed grade I diastolic dysfunction Continue Lasix S/p thoracentesis and follow up with pleural fluid studies (3) Abdominal ascites: Qualifiers: Ascites type: other type Qualified Code(s): R18.8 - Other ascites Code(s): R18.8 - Other ascites Status: Acute Assessment and Plan: - CT abdomen/pelvis: Moderate abdominopelvic ascites. Moderate pleural effusion. Questionable 4.6 x 3.0 cm fat attenuation lesion just medial to the left kidney. Consider follow-up exam in 6 months to one year to reassess. - total bilirubin, AST, ALT, alk phos WNL - suspect ascites related to volume overload/suspected new onset CHF. Echo ordered and diuretics initiated. However given questionable lesion dose penal to left kidney, cannot exclude malignant ascites. continue lasix and monitor renal function (4) Diabetes: Qualifiers: Diabetes mellitus type: type 2 Diabetes mellitus laborer marine terminal insulin use: without snf use Diabetes mellitus complication status: with hypoglycemia Diabetes mellitus complication detail: without coma Qualified Code(s): E11.649 - Type 2 diabetes mellitus with hypoglycemia without coma Code(s): E11.9 - Type 2 diabetes mellitus without complications Status: Acute Assessment and Plan: Hypoglycemia in setting of diabetes. Initial glucose upon arrival 30 on CMP around 0600, given dextrose 25G and 12.5G. recurrent hypoglycemia with BS of at 0800, given 25G of dextrose. SSI with accucheks, and adjust with clinical course (5) Urinary retention: Code(s): R33.9 - Retention of urine, unspecified Status: Acute Assessment and Plan: - patient has been given lasix with no UOP, bladder scan showing 500+ mL - place lazcano, patient reported to bedside RN that he will not likely keep it in place - UA w/reflex added - flomax daily initiated - will need follow-up with urology outpatient if fails voiding trial (6) HTN (hypertension): Qualifiers: Hypertension type: primary hypertension Qualified Code(s): I10 - Essential (primary) hypertension Code(s): I10 - Essential (primary) hypertension Status: Chronic Assessment and Plan: - chronic, currently 111/65 hold home meds and titrate with clinical course (7) Sleep apnea: Qualifiers: Sleep apnea type: unspecified type Qualified Code(s): G47.30 - Sleep apnea, unspecified Code(s): G47.30 - Sleep apnea, unspecified Status: Chronic Assessment and Plan: - continue home CPAP Plan Diet: NPO, heart healthy after thoracentesis DVT Prophylaxis: Sq lovenox Lines: Peripheral Code Status: Full Code Subjective Date/time seen: 11/07/23 13:39 Interval history: Comfortable at bedside, still on 15 liters oxygen however noted feeling better today Review of Systems Review of Systems: All systems reviewed & are unremarkable except as noted in HPI and below Exam Narrative: General: alert and comfortable Eyes: EOMI, PERRLA ENNT External ears
[2023-11-07 16:32] LABS: Glucose Point of Care 211 mg/dl (65-105)
[2023-11-07] MEDS: INSULIN ASPART (*BKC) 100 UNITS/ML SUB-Q (16:54)
[2023-11-07 19:46] LABS: Glucose Point of Care 222 mg/dl (65-105)
[2023-11-07] MEDS: FLUTICASONE PROP 44 MCG (*SP) 10.6 GM 2 PUFF INHALATION (20:43)
[2023-11-07] MEDS: MELATONIN 3 MG TABLET PO (21:05)
[2023-11-08] VITALS (35 sets, daily range): BP systolic 107–134; BP diastolic 52–73; PULSE 76–96; RESP 16–22; TEMP 36.4–36.6; O2SAT 90–98
[2023-11-08] MEDS: IPRATROPIUM 0.5 MG/ALBUTEROL SULFATE 2.5 MG AMPUL.NEB 3 ML INHALATION ×4 (02:59→20:24)
--- NOTE | 2023-11-08 04:01 | PC.NURSE ---
Patient wore bipap from [id number] then declined to put back on. Patient's O2 saturation rates while lying down and trying to sleep on 15L HF NC were dropping into the mid 80's intermittently. Patient continued to decline bipap. RN placed patient on Venturi mask at 15L/50% around 199. Patient does have sleep apnea and sleeps with his mouth open. Patient has been educated multiple times about the importance of wearing the bipap.
[2023-11-08 04:04] LABS: Basophils Absolute Auto 0.1 K/mm3 (0.0-0.1); Basophils Percent Auto 0.5 % (0.2-1.2); Eosinophils Absolute Auto 0.1 K/mm3 (0-0.3); Eosinophils Percent Auto 0.8 % (0-4.4); Hematocrit 36.6 % (42.0-52.0); Hemoglobin 10.8 g/dL (14.0-18.0); Immature Granulocyte Absolute 0.04 K/mm3 (0.00-0.031); Immature Granulocyte Percent A 0.4 % (0-0.5); Lymphocytes Absolute Auto 1.03 K/mm3 (0.9-3.2); Lymphocytes Percent Auto 9.7 % (18.3-44.2); Mean Corpuscular HGB Conc 29.5 g/dl (32-36); Mean Corpuscular Hemoglobin 25.3 pg (26-34); Mean Corpuscular Volume 85.7 fl (80-100); Mean Platelet Volume 9.4 fl (7.4-10.4); Monocytes Percent Auto 9.4 % (2.6-8.5); Neutrophils Absolute Auto 8.4 K/mm3 (1.3-6.7); Neutrophils Percent Auto 79.2 % (45.5-73.1); Platelet Count Result 172 k/mm3 (150-375); Red Blood Count 4.27 M/mm3 (4.6-6.20); Red Cell Distribution Width 16.2 % (11.5-14.5); White Blood Count 10.6 K/mm3 (4.5-10.0)
[2023-11-08 04:18] LABS: Alanine Aminotransferase 15 U/L (6-50); Albumin Level 3.4 g/dL (3.5-5.1); Alkaline Phosphatase 78 U/L (38-126); Anion Gap 6 mmol/L (4-12); Aspartate Amino Transferase 25 U/L (17-59); Bilirubin,Total 0.5 mg/dL (0.2-1.3); Blood Urea Nitrogen 43 mg/dL (9-20); Calcium 8.7 mg/dL (8.4-10.2); Carbon Dioxide 35 mmol/L (22-30); Chloride 93 mmol/L (98-107); Estimated CRCL calculation 43 ml/min; Estimated Glomerular Filt Rate 29; Glucose 143 mg/dL (65-110); Magnesium 2.1 mg/dL (1.6-2.3); Potassium 4.3 mmol/L (3.4-5.0); Sodium 134 mmol/L (137-145)
[2023-11-08] MEDS: SODIUM CHLOR 3% 15 ML NEB (RESPIRATORY THERAPY) 6 ML INHALATION (05:43)
[2023-11-08 07:57] LABS: Glucose Point of Care 131 mg/dl (65-105)
[2023-11-08] MEDS: FLUTICASONE PROP 44 MCG (*SP) 10.6 GM 2 PUFF INHALATION ×2 (08:19→20:25)
[2023-11-08] MEDS: hydroCHLOROthiazide 25 MG TABLET PO (09:04)
[2023-11-08] MEDS: FUROSEMIDE INJ 40 MG/4 ML VIAL IV PUSH ×2 (09:04→19:13)
[2023-11-08] MEDS: TAMSULOSIN HCL 0.4 MG CAPSULE PO (09:04)
[2023-11-08] MEDS: ATORVASTATIN 40 MG TABLET PO (09:04)
[2023-11-08] MEDS: AZITHROMYCIN 500 MG/NS 250 ML 500 MG/250 ML BAG 250 MG IVPB (09:05)
[2023-11-08] MEDS: ENALAPRIL MALEATE 10 MG TABLET 20 MG PO (09:05)
[2023-11-08] MEDS: amLODIPine BESYLATE 10 MG TABLET PO (09:05)
[2023-11-08 11:54] LABS: Glucose Point of Care 238 mg/dl (65-105)
[2023-11-08] MEDS: ENOXAPARIN 40 MG/0.4 ML SYRINGE SUB-Q (12:02)
[2023-11-08] MEDS: TOLNAFTATE 1% POWDER 45 GM BTL 1 APPLIC TOPICAL ×2 (12:03→20:53)
[2023-11-08] MEDS: INSULIN ASPART (*BKC) 100 UNITS/ML SUB-Q (12:03)
--- NOTE | 2023-11-08 12:04 | PM.CNCAR ---
Assessment and Plan Assessment and plan (1) Acute heart failure with preserved ejection fraction (HFpEF): Code(s): I50.31 - Acute diastolic (congestive) heart failure Status: Acute Assessment and Plan: I/Os show he is net positive 2.58 L since admission. Urine output not at goal, therefore will continue with Lasix 40mg IV BID for now, and give a one time dose of Metolazone today and assess his urine output response. Given his renal function, he may need to be on a higher dose of diuretic therapy. May have a component of right heart failure given the ascites, lower extremity edema. Will start Jardiance 10mg once daily for HFpEF. (2) Acute respiratory failure with hypoxia and hypercapnia: Code(s): J96.01 - Acute respiratory failure with hypoxia; J96.02 - Acute respiratory failure with hypercapnia Status: Acute Assessment and Plan: Wean oxygen as tolerated. Pulmonary has been consulted as well. (3) HTN (hypertension): Qualifiers: Hypertension type: primary hypertension Qualified Code(s): I10 - Essential (primary) hypertension Code(s): I10 - Essential (primary) hypertension Status: Chronic Assessment and Plan: I am going to stop the Amlodipine as that may be causing some of his lower extremity edema. I am going to stop the HCTZ as he is on Lasix. Continue Enalapril. If he needs additional blood pressure control, would recommend Spironolactone (4) Diabetes: Qualifiers: Diabetes mellitus type: type 2 Diabetes mellitus oysterman insulin use: without senior care use Diabetes mellitus complication status: with hypoglycemia Diabetes mellitus complication detail: without coma Qualified Code(s): E11.649 - Type 2 diabetes mellitus with hypoglycemia without coma Code(s): E11.9 - Type 2 diabetes mellitus without complications Status: Acute Assessment and Plan: Hgb A1c is 9.2. Management as per primary team. Patient is on Pioglitazone at home. Given heart failure, recommend that Pioglitazone be discontinued completely. Recommend referral to outpatient Endocrinology for long-term management of his diabetes. (5) CKD (chronic kidney disease): Code(s): N18.9 - Chronic kidney disease, unspecified Status: Acute Assessment and Plan: Baseline SCr levels not known. History of Present Illness History of Present Illness Consult date/time: 11/08/23 12:04 Requesting physician: Monty White MD Consult reason: congestive heart failure Reason For Visit: Hypoxic/ R Pleural Effusion/Hypoglycemia Narrative: We are consulted for CHF. This is a 63 year old male with hypertension, hyperlipidemia, ALEXANDRO, type 2 diabetes mellitus, GERD who was admitted on 11/05/2023 for shortness of breath, generalized weakness, requiring BIPAP and now high flow nasal cannula. Has been having shortness of breath over the past few months, worsening over the past week. Initial chest CTA on admission showed moderate right pleural effusion with extensive right middle lobe atelectasis, small amount of abdominal ascites. He underwent a thoracentesis on 11/04 with removal of 700ccs of fluid. CXR 11/06 shows persistent airspace opacities in the right middle lung, consistent with atelectasis versus pneumonia. NT pro BNP 16,000 on admission. Troponins are 0.245, 0.260, 0.260. EKG with sinus rhythm, incomplete right bundle branch block, nonspecific T wave abnormality. He states his breathing is feeling better now and denies shortness of breath at rest, however, he remains on high flow nasal cannula. Echocardiogram 11/05/2023 shows LV hypertrophy with well-preserved systolic function, moderately enlarged RV, mild biatrial dilation, small amount of MR/TR. Review of Systems Review of Systems: All systems reviewed & are unremarkable except as noted in HPI and below (HPI) [facility] Past Medical History Medical History Diabetes GERD (gastroesophag
[2023-11-08] MEDS: metOLazone 5 MG TABLET PO (14:31)
[2023-11-08] MEDS: EMPAGLIFLOZIN 10 MG TABLET PO (14:31)
--- NOTE | 2023-11-08 14:56 | PM.IMPN ---
Progress Note: A&P Assessment and Plan (1) Acute respiratory failure with hypoxia and hypercapnia: Code(s): J96.01 - Acute respiratory failure with hypoxia; J96.02 - Acute respiratory failure with hypercapnia Status: Acute Assessment and Plan: - chest CTA: No evidence of pulmonary embolus, aortic dissection, or aortic aneurysm. Moderate right pleural effusion with extensive right middle lobe atelectasis. likely from pulm edema CXR this morning showed worsening pulm edema -on BiPAP repeat CXR and abg Pulm consulted - patient everyday smoker, started on nebulizers scheduled and inhaled steroid (2) Pleural effusion: Code(s): J90 - Pleural effusion, not elsewhere classified Status: Acute Assessment and Plan: - CTA showing a moderate right pleural effusion - plan for diagnostic thoracentesis this afternoon - BNP 16,000 ECHO showed grade I diastolic dysfunction Continue Lasix S/p thoracentesis and follow up with pleural fluid studies (3) Abdominal ascites: Qualifiers: Ascites type: other type Qualified Code(s): R18.8 - Other ascites Code(s): R18.8 - Other ascites Status: Acute Assessment and Plan: - CT abdomen/pelvis: Moderate abdominopelvic ascites. Moderate pleural effusion. Questionable 4.6 x 3.0 cm fat attenuation lesion just medial to the left kidney. Consider follow-up exam in 6 months to one year to reassess. - total bilirubin, AST, ALT, alk phos WNL from volume overload (4) Diabetes: Qualifiers: Diabetes mellitus type: type 2 Diabetes mellitus intermediate insulin use: without intermediate teacher use Diabetes mellitus complication status: with hypoglycemia Diabetes mellitus complication detail: without coma Qualified Code(s): E11.649 - Type 2 diabetes mellitus with hypoglycemia without coma Code(s): E11.9 - Type 2 diabetes mellitus without complications Status: Acute Assessment and Plan: Hypoglycemia in setting of diabetes. Initial glucose upon arrival 30 on CMP around 0600, given dextrose 25G and 12.5G. recurrent hypoglycemia with BS of at 0800, given 25G of dextrose. SSI with accucheks, and adjust with clinical course (5) Urinary retention: Code(s): R33.9 - Retention of urine, unspecified Status: Acute Assessment and Plan: - patient has been given lasix with no UOP, bladder scan showing 500+ mL - place lazcano, patient reported to bedside RN that he will not likely keep it in place - UA w/reflex added - flomax daily initiated - will need follow-up with urology outpatient if fails voiding trial (6) HTN (hypertension): Qualifiers: Hypertension type: primary hypertension Qualified Code(s): I10 - Essential (primary) hypertension Code(s): I10 - Essential (primary) hypertension Status: Chronic Assessment and Plan: - chronic, currently 111/65 hold home meds and titrate with clinical course (7) Sleep apnea: Qualifiers: Sleep apnea type: unspecified type Qualified Code(s): G47.30 - Sleep apnea, unspecified Code(s): G47.30 - Sleep apnea, unspecified Status: Chronic Assessment and Plan: - continue home BiPAP Plan Diet: NPO, heart healthy after thoracentesis DVT Prophylaxis: Sq lovenox Lines: Peripheral Code Status: Full Code Subjective Date/time seen: 11/08/23 14:56 Interval history: Comfortable at bedside, on BiPAP this morning repeat Abg and CXR Pulm consulted pleural fluid culture negative Pleural fluid LDH, protein and glucose still pending Review of Systems Review of Systems: All systems reviewed & are unremarkable except as noted in HPI and below Exam Narrative: General: alert and comfortable Eyes: EOMI, PERRLA ENNT External ears normal, Neck is supple, no masses, Respiratory systems: Clear to auscultation Cardiovascular S1, S2, normal rhythm, no
[2023-11-08 15:08] LABS: Alveolar/Arterial O2 Gradient 373.6 mmHg; Base Excess ABG 5.6 mEq/l (+/-2.0); Fractional Inspired Oxygen 70 %; HCO3 ABG 32.1 mEq/l (22.0-26.0); Oxygen Content ABG 14.9 %vol (16.0-22.0); Oxyhemoglobin 90.5 % THb (90.0-100.0); PCO2 ABG 55.9 mmHg (35.0-45.0); PO2 ABG 65.4 mmHg (80.0-100.0); PO2 FiO2 Ratio Arterial Blood 0.93 %; Total Hemoglobin 11.7 g/dL (12.0-18.0); pH ABG 7.377 (7.350-7.450)
[2023-11-08 15:11] LABS: Device HIGH FLOW NASAL CANN; Modified Allen's Test Pass; Site Drawn RIGHT RADIAL
[2023-11-08 16:26] LABS: Glucose Point of Care 213 mg/dl (65-105)
[2023-11-08 20:26] LABS: Glucose Point of Care 229 mg/dl (65-105)
[2023-11-08] MEDS: MELATONIN 3 MG TABLET PO (20:53)
[2023-11-09] VITALS (30 sets, daily range): BP systolic 117–133; BP diastolic 53–63; PULSE 74–95; RESP 16–26; TEMP 36.3–36.6; O2SAT 89–99
[2023-11-09] MEDS: IPRATROPIUM 0.5 MG/ALBUTEROL SULFATE 2.5 MG AMPUL.NEB 3 ML INHALATION ×4 (02:40→20:22)
--- NOTE | 2023-11-09 03:38 | PC.NURSE ---
Patient has worn bipap 6 hours total to this point. currently taking a break.
--- NOTE | 2023-11-09 05:21 | PC.NURSE ---
7 hours and 20 minutes total on bipap tonight.
[2023-11-09 07:42] LABS: Glucose Point of Care 121 mg/dl (65-105)
[2023-11-09 08:49] LABS: Alveolar/Arterial O2 Gradient 411.8 mmHg; Base Excess ABG 8.1 mEq/l (+/-2.0); Fractional Inspired Oxygen 75 %; Oxygen Content ABG 13.9 %vol (16.0-22.0); Oxygen Saturation ABG 88.7 % (95.0-100.0); PO2 ABG 57.9 mmHg (80.0-100.0); PO2 FiO2 Ratio Arterial Blood 0.77 %; Total Hemoglobin 11.2 g/dL (12.0-18.0); pH ABG 7.375 (7.350-7.450)
[2023-11-09 08:54] LABS: PCO2 ABG 61.2 mmHg (35.0-45.0)
[2023-11-09 08:55] LABS: Device NASAL CANNULA; Modified Allen's Test Pass; Oxyhemoglobin 87.8 % THb (90.0-100.0); Site Drawn RIGHT RADIAL
[2023-11-09] MEDS: FLUTICASONE PROP 44 MCG (*SP) 10.6 GM 2 PUFF INHALATION ×2 (09:00→20:22)
--- NOTE | 2023-11-09 09:12 | PM.PNCARD ---
Progress Note: A&P Assessment and Plan (1) Acute heart failure with preserved ejection fraction (HFpEF): Code(s): I50.31 - Acute diastolic (congestive) heart failure Status: Acute Assessment and Plan: I/Os show he is net positive 2.58 L since admission. Urine output not at goal, therefore will continue with Lasix 40mg IV BID for now. Will give another dose of metolazone 5 mg p.o. x1 today. With his rate ventricular enlargement, morbid obesity, sleep apnea, ascites; his volume overload is likely secondary to right-sided failure with some contribution from left-sided diastolic dysfunction. (2) Acute respiratory failure with hypoxia and hypercapnia: Code(s): J96.01 - Acute respiratory failure with hypoxia; J96.02 - Acute respiratory failure with hypercapnia Status: Acute Assessment and Plan: Wean oxygen as tolerated. Pulmonary has been consulted as well. (3) HTN (hypertension): Qualifiers: Hypertension type: primary hypertension Qualified Code(s): I10 - Essential (primary) hypertension Code(s): I10 - Essential (primary) hypertension Status: Chronic Assessment and Plan: Continue Enalapril. If he needs additional blood pressure control, would recommend Spironolactone (4) Diabetes: Qualifiers: Diabetes mellitus type: type 2 Diabetes mellitus retirement insulin use: without retirement use Diabetes mellitus complication status: with hypoglycemia Diabetes mellitus complication detail: without coma Qualified Code(s): E11.649 - Type 2 diabetes mellitus with hypoglycemia without coma Code(s): E11.9 - Type 2 diabetes mellitus without complications Status: Acute Assessment and Plan: Hgb A1c is 9.2. Management as per primary team. Patient is on Pioglitazone at home. Given heart failure, recommend that Pioglitazone be discontinued completely. Recommend referral to outpatient Endocrinology for long-term management of his diabetes. (5) CKD (chronic kidney disease): Code(s): N18.9 - Chronic kidney disease, unspecified Status: Acute Assessment and Plan: Baseline SCr levels not known. Subjective Date/time seen: 11/09/23 09:12 Interval history: 63-year-old with morbid obesity likely right-sided heart failure Date of service 11/09/2023: He states that he feels a little bit better and is less short of breath. No chest pain. Review of Systems Review of Systems: All systems reviewed & are unremarkable except as noted in HPI and below Constitutional: Constitutional: Denies body ache(s) ENT: Reports Normal hearing present Respiratory: Respiratory: Denies hemoptysis Gastrointestinal: Gastrointestinal: Denies abdominal pain Exam Const: General: comfortable and no acute distress HENMT: Mouth: Yes moist mucous membranes Eyes: General: appearance normal, both eyes and all related structures Sclera: sclerae normal Neck: Neck: supple Resp: Effort & Inspection: normal respiratory effort Auscultation: clear to auscultation bilaterally Other: On HFNC Cardio: Rate: regular rate Rhythm: regular rhythm Other: + Bilateral lower extremity edema Skin: General skin exam: normal color Neuro: Speech: normal speech Psych: Mental Status: mental status grossly normal Affect: normal affect Objective Data Vital Signs Vital Signs: Vital Signs - 24 hr 11/08/23 11:21 11/08/23 11:55 11/08/23 13:15 Temperature 36.6 C Pulse Rate 93 Respiratory Rate 18 Blood Pressure 134/58 L Pulse Oximetry 92 92 96 Oxygen Delivery High Flow Nasal Cannula High Flow Nasal Cannula Oxygen Flow Rate 15 15 Fraction of Inspired Oxygen 100 100 11/08/23 13:15 11/08/23 13:27 11/08/23 15:00 Temperature Pulse Rate 90 86 Respiratory Rate 16 16 Blood Pressure Pulse Oximetry 93 Oxygen Delivery High Flow Nasal Cannula Oxygen Flow Rate 11 Fraction of Inspired Oxygen 11/08/23 10:00
[2023-11-09] MEDS: ATORVASTATIN 40 MG TABLET PO (09:32)
[2023-11-09] MEDS: FUROSEMIDE INJ 40 MG/4 ML VIAL IV PUSH ×2 (09:33→16:56)
[2023-11-09] MEDS: ENOXAPARIN 40 MG/0.4 ML SYRINGE SUB-Q (09:33)
[2023-11-09] MEDS: TAMSULOSIN HCL 0.4 MG CAPSULE PO (09:33)
[2023-11-09] MEDS: TOLNAFTATE 1% POWDER 45 GM BTL 1 APPLIC TOPICAL ×2 (09:33→20:52)
[2023-11-09] MEDS: ENALAPRIL MALEATE 10 MG TABLET 20 MG PO (09:33)
[2023-11-09] MEDS: EMPAGLIFLOZIN 10 MG TABLET PO (09:33)
[2023-11-09] MEDS: AZITHROMYCIN 500 MG/NS 250 ML 500 MG/250 ML BAG 250 MG IVPB (09:45)
--- NOTE | 2023-11-09 10:06 | PM.CNPUL ---
Assessment and Plan Assessment and plan (1) Acute respiratory failure with hypoxia and hypercapnia: Code(s): J96.01 - Acute respiratory failure with hypoxia; J96.02 - Acute respiratory failure with hypercapnia Status: Acute Assessment and Plan: This is a 63-year-old man with a history of severe obesity and obstructive sleep apnea on CPAP at home, with a history of noncompliance with CPAP usage, who presented with progressively increasing shortness of breath and lower extremity edema. Diagnostic studies have shown acute on chronic hypercapnic respiratory failure related to obesity hypoventilation, which seems to be responding to BiPAP support, as well as a right pleural effusion and a small amount of ascites. These findings, coupled with the echocardiogram results and the Cardiology assessment, right pleural effusion is consistent with right heart failure. Additionally, the patient has left ventricular diastolic dysfunction and mild hypertension. He seems to be responding to treatment with diuretics and BiPAP support. An episode of low oxyhemoglobin saturation today, which reversed after placing the patient on a non-rebreather mask, is probably related to obesity with basal atelectasis, mostly on the right, as shown by chest x-ray. The patient has no evidence of a lower respiratory tract infection. Plan: Continue with BiPAP support at night as prescribed. Ask the patient to bring his own CPAP device. Before discharging him home, perform an ApneaLink study on his home CPAP device. Add intensive spirometry. Pleural fluid analysis is pending. Discontinue antibiotics. Continue DVT prophylaxis. (2) Pleural effusion: Code(s): J90 - Pleural effusion, not elsewhere classified Status: Acute (3) Sleep apnea: Qualifiers: Sleep apnea type: unspecified type Qualified Code(s): G47.30 - Sleep apnea, unspecified Code(s): G47.30 - Sleep apnea, unspecified Status: Chronic (4) Diabetes: Qualifiers: Diabetes mellitus type: type 2 Diabetes mellitus nursing home insulin use: without rn long term care use Diabetes mellitus complication status: with hypoglycemia Diabetes mellitus complication detail: without coma Qualified Code(s): E11.649 - Type 2 diabetes mellitus with hypoglycemia without coma Code(s): E11.9 - Type 2 diabetes mellitus without complications Status: Acute (5) Abdominal ascites: Qualifiers: Ascites type: other type Qualified Code(s): R18.8 - Other ascites Code(s): R18.8 - Other ascites Status: Acute (6) HTN (hypertension): Qualifiers: Hypertension type: primary hypertension Qualified Code(s): I10 - Essential (primary) hypertension Code(s): I10 - Essential (primary) hypertension Status: Chronic (7) Acute heart failure with preserved ejection fraction (HFpEF): Code(s): I50.31 - Acute diastolic (congestive) heart failure Status: Acute History of Present Illness History of Present Illness Consult date: 11/09/23 Chief complaint: Hypoxic/ R Pleural Effusion/Hypoglycemia Narrative: The patient presented to the hospital with generalized weakness and episodes of near syncope at home. I was asked to see the patient regarding a right pleural effusion and acute on chronic hypercapnic respiratory failure. The patient stated that he has got history of diabetes mellitus hypertension and sleep apnea. He has been on CPAP but has not been very consistent with its usage. No previous sleep study is available. Patient reported shortness of breath of several weeks duration and also increasing lower extremity edema. He had no fever chills hemoptysis orthopnea or wheezing. He has been a smoker for many years but does not consume alcohol. Workup in the emergency room in addition to acute on chronic hypercapnic respiratory failure showed right pleural effusion. The patient has undergone thoracentesis with removal of approximat
--- NOTE | 2023-11-09 10:30 | PM.IMPN ---
Progress Note: A&P Assessment and Plan (1) Acute respiratory failure with hypoxia and hypercapnia: Code(s): J96.01 - Acute respiratory failure with hypoxia; J96.02 - Acute respiratory failure with hypercapnia Status: Acute Assessment and Plan: - chest CTA: No evidence of pulmonary embolus, aortic dissection, or aortic aneurysm. Moderate right pleural effusion with extensive right middle lobe atelectasis. likely from pulm edema CXR this morning showed worsening pulm edema -on BiPAP repeat CXR and abg Pulm consulted - patient everyday smoker, started on nebulizers scheduled and inhaled steroid day 4 of Rocephin and Azithromycin (2) Pleural effusion: Code(s): J90 - Pleural effusion, not elsewhere classified Status: Acute Assessment and Plan: - CTA showing a moderate right pleural effusion - plan for diagnostic thoracentesis this afternoon - BNP 16,000 ECHO showed grade I diastolic dysfunction Continue Lasix S/p thoracentesis and pleural fluid culture negative However pleural protein, glucose and LDH still pending (3) Abdominal ascites: Qualifiers: Ascites type: other type Qualified Code(s): R18.8 - Other ascites Code(s): R18.8 - Other ascites Status: Acute Assessment and Plan: - CT abdomen/pelvis: Moderate abdominopelvic ascites. Moderate pleural effusion. Questionable 4.6 x 3.0 cm fat attenuation lesion just medial to the left kidney. Consider follow-up exam in 6 months to one year to reassess. 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 Diabetes mellitus complication status: with hypoglycemia Diabetes mellitus complication detail: without coma Qualified Code(s): E11.649 - Type 2 diabetes mellitus with hypoglycemia without coma Code(s): E11.9 - Type 2 diabetes mellitus without complications Status: Acute Assessment and Plan: hypoglycemia resolved SSI with accucheks, and adjust with clinical course (5) Urinary retention: Code(s): R33.9 - Retention of urine, unspecified Status: Acute Assessment and Plan: - patient has been given lasix with no UOP, bladder scan showing 500+ mL - place lazcano, patient reported to bedside RN that he will not likely keep it in place - UA w/reflex added - flomax daily initiated - will need follow-up with urology outpatient if fails voiding trial (6) HTN (hypertension): Qualifiers: Hypertension type: primary hypertension Qualified Code(s): I10 - Essential (primary) hypertension Code(s): I10 - Essential (primary) hypertension Status: Chronic Assessment and Plan: - chronic, currently 111/65 hold home meds and titrate with clinical course (7) Sleep apnea: Qualifiers: Sleep apnea type: unspecified type Qualified Code(s): G47.30 - Sleep apnea, unspecified Code(s): G47.30 - Sleep apnea, unspecified Status: Chronic Assessment and Plan: - continue home BiPAP Plan Diet: NPO, heart healthy after thoracentesis DVT Prophylaxis: Sq lovenox Lines: Peripheral Code Status: Full Code Subjective Date/time seen: 11/09/23 10:30 Interval history: patient noted he continues to feel better, and currently on 10 liters NC oxygen down from biPAP and 15 liters. Currently on Lasix 40mg bid, pulmonology consulted and will evaluate today Pleural fluid culture negative however, pleural protein, glucose and LDh still pending Review of Systems Review of Systems: All systems reviewed & are unremarkable except as noted in HPI and below Exam Narrative: General: alert and comfortable Eyes: EOMI, PERRLA ENNT External ears normal, Neck is supple, no masses, Respiratory systems: Clear to auscultation Cardiovascular S1
[2023-11-09 13:40] LABS: Glucose Point of Care 182 mg/dl (65-105)
[2023-11-09 16:05] LABS: Glucose Point of Care 236 mg/dl (65-105)
[2023-11-09] MEDS: INSULIN ASPART (*BKC) 100 UNITS/ML SUB-Q (16:56)
[2023-11-09] MEDS: metOLazone 5 MG TABLET PO (16:56)
[2023-11-09] MEDS: MELATONIN 3 MG TABLET PO (20:51)
[2023-11-09 20:57] LABS: Glucose Point of Care 200 mg/dl (65-105)
[2023-11-10] VITALS (31 sets, daily range): BP systolic 101–152; BP diastolic 50–65; PULSE 79–101; RESP 16–25; TEMP 36.3–36.5; O2SAT 91–100
[2023-11-10] MEDS: IPRATROPIUM 0.5 MG/ALBUTEROL SULFATE 2.5 MG AMPUL.NEB 3 ML INHALATION ×4 (02:55→19:31)
[2023-11-10 04:57] LABS: Basophils Percent Auto 0.4 % (0.2-1.2); Eosinophils Absolute Auto 0.1 K/mm3 (0-0.3); Eosinophils Percent Auto 0.9 % (0-4.4); Hematocrit 32.2 % (42.0-52.0); Hemoglobin 9.9 g/dL (14.0-18.0); Immature Granulocyte Absolute 0.03 K/mm3 (0.00-0.031); Immature Granulocyte Percent A 0.3 % (0-0.5); Lymphocytes Absolute Auto 0.63 K/mm3 (0.9-3.2); Lymphocytes Percent Auto 7.1 % (18.3-44.2); Mean Corpuscular HGB Conc 30.7 g/dl (32-36); Mean Corpuscular Hemoglobin 25.7 pg (26-34); Mean Corpuscular Volume 83.6 fl (80-100); Mean Platelet Volume 9.5 fl (7.4-10.4); Monocytes Absolute Auto 0.9 K/mm3 (0.1-0.6); Monocytes Percent Auto 9.8 % (2.6-8.5); Neutrophils Absolute Auto 7.3 K/mm3 (1.3-6.7); Neutrophils Percent Auto 81.5 % (45.5-73.1); Platelet Count Result 123 k/mm3 (150-375); Red Blood Count 3.85 M/mm3 (4.6-6.20); Red Cell Distribution Width 15.9 % (11.5-14.5); White Blood Count 8.9 K/mm3 (4.5-10.0)
--- NOTE | 2023-11-10 05:30 | PC.NURSE ---
Patient was on bipap for 7 hours total overnight.
[2023-11-10 05:36] LABS: Alanine Aminotransferase 13 U/L (6-50); Alkaline Phosphatase 68 U/L (38-126); Anion Gap 4 mmol/L (4-12); Aspartate Amino Transferase 17 U/L (17-59); Bilirubin,Total 0.6 mg/dL (0.2-1.3); Blood Urea Nitrogen 37 mg/dL (9-20); Calcium 8.2 mg/dL (8.4-10.2); Carbon Dioxide 36 mmol/L (22-30); Chloride 92 mmol/L (98-107); Estimated CRCL calculation 62 ml/min; Estimated Glomerular Filt Rate 44; Glucose 140 mg/dL (65-110); Magnesium 1.9 mg/dL (1.6-2.3); Potassium 3.8 mmol/L (3.4-5.0); Sodium 132 mmol/L (137-145)
[2023-11-10] MEDS: FLUTICASONE PROP 44 MCG (*SP) 10.6 GM 2 PUFF INHALATION ×2 (07:26→19:31)
[2023-11-10 08:16] LABS: Glucose Point of Care 136 mg/dl (65-105)
[2023-11-10] MEDS: EMPAGLIFLOZIN 10 MG TABLET PO (09:06)
[2023-11-10] MEDS: TAMSULOSIN HCL 0.4 MG CAPSULE PO (09:06)
[2023-11-10] MEDS: ATORVASTATIN 40 MG TABLET PO (09:06)
[2023-11-10] MEDS: ENOXAPARIN 40 MG/0.4 ML SYRINGE SUB-Q (09:07)
[2023-11-10] MEDS: FUROSEMIDE INJ 40 MG/4 ML VIAL IV PUSH ×2 (09:07→17:47)
[2023-11-10] MEDS: ENALAPRIL MALEATE 10 MG TABLET 20 MG PO (09:07)
[2023-11-10] MEDS: AZITHROMYCIN 500 MG/NS 250 ML 500 MG/250 ML BAG 250 MG IVPB (09:20)
[2023-11-10] MEDS: TOLNAFTATE 1% POWDER 45 GM BTL 1 APPLIC TOPICAL ×2 (09:21→20:21)
--- NOTE | 2023-11-10 10:33 | PM.PNCARD ---
Progress Note: A&P Assessment and Plan (1) Acute heart failure with preserved ejection fraction (HFpEF): Code(s): I50.31 - Acute diastolic (congestive) heart failure Status: Acute Assessment and Plan: Continue with Lasix 40mg IV BID for now. With his right ventricular enlargement, morbid obesity, sleep apnea, ascites; his volume overload is likely secondary to right-sided failure with some contribution from left-sided diastolic dysfunction. Continue Jardiance. (2) Acute respiratory failure with hypoxia and hypercapnia: Code(s): J96.01 - Acute respiratory failure with hypoxia; J96.02 - Acute respiratory failure with hypercapnia Status: Acute Assessment and Plan: Wean oxygen as tolerated. Pulmonary has been consulted as well. (3) HTN (hypertension): Code(s): I10 - Essential (primary) hypertension Status: Chronic Assessment and Plan: Continue Enalapril. If he needs additional blood pressure control, would recommend Spironolactone (4) Diabetes: Code(s): E11.9 - Type 2 diabetes mellitus without complications Status: Acute Assessment and Plan: Hgb A1c is 9.2. Management as per primary team. Patient is on Pioglitazone at home. Given heart failure, recommend that Pioglitazone be discontinued completely. Recommend referral to outpatient Endocrinology for long-term management of his diabetes. (5) CKD (chronic kidney disease): Code(s): N18.9 - Chronic kidney disease, unspecified Status: Acute Assessment and Plan: Baseline SCr levels not known. However, his SCr is improving with diuresis. Subjective Date/time seen: 11/10/23 10:33 Interval history: Reason for visit: HFpEF, right heart failure HPI: We are consulted for CHF. This is a 63 year old male with hypertension, hyperlipidemia, ALEXANDRO, type 2 diabetes mellitus, GERD who was admitted on 11/05/2023 for shortness of breath, generalized weakness, requiring BIPAP and now high flow nasal cannula. Has been having shortness of breath over the past few months, worsening over the past week. Initial chest CTA on admission showed moderate right pleural effusion with extensive right middle lobe atelectasis, small amount of abdominal ascites. He underwent a thoracentesis on 11/04 with removal of 700ccs of fluid. CXR 11/06 shows persistent airspace opacities in the right middle lung, consistent with atelectasis versus pneumonia. NT pro BNP 16,000 on admission. Troponins are 0.245, 0.260, 0.260. EKG with sinus rhythm, incomplete right bundle branch block, nonspecific T wave abnormality. He states his breathing is feeling better now and denies shortness of breath at rest, however, he remains on high flow nasal cannula. Echocardiogram 11/05/2023 shows LV hypertrophy with well-preserved systolic function, moderately enlarged RV, mild biatrial dilation, small amount of MR/TR. Date of service 11/08: He states that he feels a little bit better and is less short of breath. No chest pain. Date of service 11/09: Diuresing well now. Feeling bit better. Legs feel less tight. Review of Systems Review of Systems: All systems reviewed & are unremarkable except as noted in HPI and below (HPI) Exam Const: General: comfortable and no acute distress HENMT: Mouth: Yes moist mucous membranes Eyes: General: appearance normal, both eyes and all related structures Sclera: sclerae normal Neck: Neck: supple Resp: Effort & Inspection: normal respiratory effort Other: On HFNC Cardio: Rate: regular rate Rhythm: regular rhythm Other: + Bilateral lower extremity edema Skin: General skin exam: normal color Neuro: Speech: normal speech Psych: Mental Status: mental status grossly normal Affect: normal affect Objective Data Vital Signs Vital Signs: Vital Signs - 24 hr 11/09/23 11:30 11/09/23 13:25 11/09/23 13:33 Temperature 36.3 C L Pulse Rate 91 87 92 Respiratory Rate 26 H 18 18 Blood Pressure 122/53 L
[2023-11-10 11:35] LABS: Albumin Pleural Fluid 1.3 g/dL; Amylase, Pleural Fluid 11 U/L
[2023-11-10 12:04] LABS: Glucose Point of Care 181 mg/dl (65-105)
[2023-11-10 14:41] LABS: Glucose Point of Care 180 mg/dl (65-105)
--- NOTE | 2023-11-10 15:06 | PM.IMPN ---
Progress Note: A&P Assessment and Plan (1) Acute respiratory failure with hypoxia and hypercapnia: Code(s): J96.01 - Acute respiratory failure with hypoxia; J96.02 - Acute respiratory failure with hypercapnia Status: Acute Assessment and Plan: - chest CTA: No evidence of pulmonary embolus, aortic dissection, or aortic aneurysm. Moderate right pleural effusion with extensive right middle lobe atelectasis. likely from pulm edema CXR this morning showed small pleural effusion.Airspace opacities at the lung bases with improvement on the right, likely atelectasis. prn BiPAP repeat CXR and abg Pulm consulted patient everyday smoker, started on nebulizers scheduled and inhaled steroid d/c Rocephin and Azithromycin (2) Pleural effusion: Code(s): J90 - Pleural effusion, not elsewhere classified Status: Acute Assessment and Plan: - CTA showing a moderate right pleural effusion - plan for diagnostic thoracentesis this afternoon - BNP 16,000 ECHO showed grade I diastolic dysfunction Continue Lasix S/p thoracentesis and pleural fluid culture negative However pleural protein, glucose and LDH still pending (3) Abdominal ascites: Qualifiers: Ascites type: other type Qualified Code(s): R18.8 - Other ascites Code(s): R18.8 - Other ascites Status: Acute Assessment and Plan: -Ordered US RUQ - CT abdomen/pelvis: Moderate abdominopelvic ascites. Moderate pleural effusion. Questionable 4.6 x 3.0 cm fat attenuation lesion just medial to the left kidney. Consider follow-up exam in 6 months to one year to reassess. - total bilirubin, AST, ALT, alk phos WNL from volume overload (4) Diabetes: Qualifiers: Diabetes mellitus complication detail: without coma Diabetes mellitus complication status: with hypoglycemia Diabetes mellitus emt intermediate insulin use: without custodial use Diabetes mellitus type: type 2 Qualified Code(s): E11.649 - Type 2 diabetes mellitus with hypoglycemia without coma Code(s): E11.9 - Type 2 diabetes mellitus without complications Status: Acute Assessment and Plan: hypoglycemia resolved SSI with accucheks, and adjust with clinical course (5) Urinary retention: Code(s): R33.9 - Retention of urine, unspecified Status: Acute Assessment and Plan: - patient has been given lasix with no UOP, bladder scan showing 500+ mL - place lazcano, patient reported to bedside RN that he will not likely keep it in place - UA w/reflex added - flomax daily initiated - will need follow-up with urology outpatient if fails voiding trial (6) HTN (hypertension): Qualifiers: Hypertension type: primary hypertension Qualified Code(s): I10 - Essential (primary) hypertension Code(s): I10 - Essential (primary) hypertension Status: Chronic Assessment and Plan: hold home meds and titrate with clinical course (7) Sleep apnea: Qualifiers: Sleep apnea type: unspecified type Qualified Code(s): G47.30 - Sleep apnea, unspecified Code(s): G47.30 - Sleep apnea, unspecified Status: Chronic Assessment and Plan: - continue home BiPAP Plan Diet: heart healthy DVT Prophylaxis: Sq lovenox Lines: Peripheral Code Status: Full Code Subjective Date/time seen: 11/10/23 15:06 Interval history: Patient was examined at the bedside. Patient requires BiPAP during his sleep. Today we ordered ultrasound of the liver to rule out any other causes of ascites. Patient was started with the high-flow nasal cannula 15 L but currently on 9 L. Patient pleural effusion possibly due to the right ventricular enlargement caused by his sleep apnea. Review of Systems Review of Systems: All systems reviewed & are unremarkable except as noted in HPI and below Exam Narrative: General: alert and comfortable Eyes: EOMI, PERRLA ENNT
[2023-11-10 17:07] LABS: Glucose Point of Care 171 mg/dl (65-105)
--- NOTE | 2023-11-10 18:40 | PM.PNPUL ---
Progress Note: A&P Assessment and Plan (1) Acute respiratory failure with hypoxia and hypercapnia: Code(s): J96.01 - Acute respiratory failure with hypoxia; J96.02 - Acute respiratory failure with hypercapnia Status: Acute Assessment and Plan: He is on high levels of O2 which he cannot have at home, will have to have additional treatment of his right heart failure and left ventricular diastolic dysfunction. He has severe obesity and obstructive sleep apnea on CPAP at home, with a history of noncompliance with CPAP usage. he presented with progressively increasing shortness of breath and lower extremity edema. Diagnostic studies have shown acute on chronic hypercapnic respiratory failure related to obesity hypoventilation, which seems to be responding to BiPAP support, as well as a right pleural effusion and a small amount of ascites. These findings, coupled with the echocardiogram results and the Cardiology assessment, right pleural effusion is consistent with right heart failure. Additionally, the patient has left ventricular diastolic dysfunction and mild hypertension. Plan plan: Continue with BiPAP support at night as prescribed. He has a CPAP at home, however he is pretty sick right now, won't be able to use his old machine reliably as his condition has changed so much since he initially started using it. Add intensive spirometry. Pleural fluid analysis - pending. Discontinue antibiotics. Continue DVT prophylaxis. He wants to go home as soon as he can; has a cat, wants to cut grass on riding mower, He is on 10 L O2, does not normally wear O2 at home. He is not going to be able to go home until his O2 exchange is better. He will need O2 set up for home use. Subjective Date/time seen: 11/10/23 18:40 Interval history: 11/10/2023; hospital follow up : He is feeling better, 11/09/2023 new pulmonary consult: The patient presented to the hospital with generalized weakness and episodes of near syncope at home. I was asked to see the patient regarding a right pleural effusion and acute on chronic hypercapnic respiratory failure. The patient stated that he has got history of diabetes mellitus hypertension and sleep apnea. He has been on CPAP but has not been very consistent with its usage. No previous sleep study is available. Patient reported shortness of breath of several weeks duration and also increasing lower extremity edema. He had no fever chills hemoptysis orthopnea or wheezing. He has been a smoker for many years but does not consume alcohol. Workup in the emergency room in addition to acute on chronic hypercapnic respiratory failure showed right pleural effusion. The patient has undergone thoracentesis with removal of approximately 700 mL of clear fluid. Pleural fluid analysis is pending. Patient has been on BiPAP support for acute on chronic respiratory failure. Today was sitting up in bed with no specific complaints. His O2 saturation was found in the high 70% range while on supplemental oxygen at 10 liters/minute via nasal cannula. Patient was then switched to non-rebreather mask with significant improvement of his oxyhemoglobin saturation. His lower extremity edema is significantly less. Patient was evaluated by Cardiology Services. His echocardiogram showed left ventricular diastolic dysfunction grade 1 severely enlarged right ventricle mild pulmonary hypertension. Interesting finding was presence of ascites on the chest CT. Patient stated that he never had history of liver disease and does not usually consume a alcohol. He is a retired local company intermodal truck driver. Review of Systems Review of Systems: All systems reviewed & are unremarkable except as noted in HPI and below Exam Narrative: GENERAL APPEARANCE: Well developed, well nourished, alert and cooperative, and appears t
[2023-11-10] MEDS: MELATONIN 3 MG TABLET PO ×2 (20:21→20:26)
[2023-11-10 20:33] LABS: Glucose Point of Care 179 mg/dl (65-105)
[2023-11-11] VITALS (26 sets, daily range): BP systolic 113–135; BP diastolic 55–70; PULSE 79–99; RESP 20–22; TEMP 35.8–36.8; O2SAT 91–96
[2023-11-11] MEDS: IPRATROPIUM 0.5 MG/ALBUTEROL SULFATE 2.5 MG AMPUL.NEB 3 ML INHALATION ×4 (02:22→20:22)
[2023-11-11 04:43] LABS: Hematocrit 34.8 % (42.0-52.0); Hemoglobin 10.6 g/dL (14.0-18.0); Mean Corpuscular HGB Conc 30.5 g/dl (32-36); Mean Corpuscular Hemoglobin 25.7 pg (26-34); Mean Corpuscular Volume 84.5 fl (80-100); Mean Platelet Volume 9.9 fl (7.4-10.4); Platelet Count Result 141 k/mm3 (150-375); Red Blood Count 4.12 M/mm3 (4.6-6.20); Red Cell Distribution Width 15.9 % (11.5-14.5); White Blood Count 7.1 K/mm3 (4.5-10.0)
[2023-11-11 05:02] LABS: Alanine Aminotransferase 14 U/L (6-50); Albumin Level 3.3 g/dL (3.5-5.1); Alkaline Phosphatase 74 U/L (38-126); Anion Gap 5 mmol/L (4-12); Aspartate Amino Transferase 23 U/L (17-59); Bilirubin,Total 0.7 mg/dL (0.2-1.3); Blood Urea Nitrogen 33 mg/dL (9-20); Calcium 8.5 mg/dL (8.4-10.2); Carbon Dioxide 39 mmol/L (22-30); Chloride 88 mmol/L (98-107); Estimated CRCL calculation 70 ml/min; Estimated Glomerular Filt Rate 52; Glucose 135 mg/dL (65-110); Potassium 3.6 mmol/L (3.4-5.0); Sodium 132 mmol/L (137-145)
[2023-11-11 07:29] LABS: Glucose Point of Care 137 mg/dl (65-105)
[2023-11-11] MEDS: FLUTICASONE PROP 44 MCG (*SP) 10.6 GM 2 PUFF INHALATION ×2 (07:43→20:23)
[2023-11-11] MEDS: FUROSEMIDE INJ 40 MG/4 ML VIAL IV PUSH ×2 (09:03→16:37)
[2023-11-11] MEDS: EMPAGLIFLOZIN 10 MG TABLET PO (09:04)
[2023-11-11] MEDS: TAMSULOSIN HCL 0.4 MG CAPSULE PO (09:04)
[2023-11-11] MEDS: ATORVASTATIN 40 MG TABLET PO (09:04)
[2023-11-11] MEDS: ENALAPRIL MALEATE 10 MG TABLET 20 MG PO (09:04)
[2023-11-11] MEDS: TOLNAFTATE 1% POWDER 45 GM BTL 1 APPLIC TOPICAL ×2 (09:05→20:12)
[2023-11-11] MEDS: ENOXAPARIN 40 MG/0.4 ML SYRINGE SUB-Q (09:10)
--- NOTE | 2023-11-11 10:07 | PM.PNPUL ---
Progress Note: A&P Assessment and Plan (1) Acute respiratory failure with hypoxia and hypercapnia: Code(s): J96.01 - Acute respiratory failure with hypoxia; J96.02 - Acute respiratory failure with hypercapnia Status: Acute Assessment and Plan: Patient's respiratory status seems to be improving following thoracentesis and treatment for congestive heart failure. Lower extremity edema significantly less. Patient using BiPAP support at night. Pleural fluid analysis showing likely transudate based on low albumin. Plan: Continue with the current BiPAP support supplemental oxygen as well as treatment for his congestive heart failure. Patient was advised to bring his home CPAP machine. He will need ApneaLink on home CPAP machine supplemental oxygen before discharging home. Is still requiring high FiO2. Continue with incentive spirometry out of bed to chair (2) Pleural effusion: Code(s): J90 - Pleural effusion, not elsewhere classified Status: Acute (3) Diabetes: Qualifiers: Diabetes mellitus type: type 2 Diabetes mellitus intermodal customer service insulin use: without intermodal customer service use Diabetes mellitus complication status: with hypoglycemia Diabetes mellitus complication detail: without coma Qualified Code(s): E11.649 - Type 2 diabetes mellitus with hypoglycemia without coma Code(s): E11.9 - Type 2 diabetes mellitus without complications Status: Acute (4) Acute heart failure with preserved ejection fraction (HFpEF): Code(s): I50.31 - Acute diastolic (congestive) heart failure Status: Acute Subjective Date/time seen: 11/11/23 10:07 Interval history: Patient stated his breathing is getting better. Using BiPAP support at night. Underwent thoracentesis. Review of Systems Review of Systems: All systems reviewed & are unremarkable except as noted in HPI and below (HPI and below) Exam Narrative: GENERAL APPEARANCE: Well developed, well nourished, alert and cooperative, and appears to be in no acute distress while on supplemental oxygen via nasal cannula SKIN: Inspection of the skin reveals no rashes, ulcerations or petechiae. HEENT: Sclerae anicteric and conjunctivae pink and moist. Extraocular movements were intact and pupils were equal, round, and reactive to light. The oral mucosa, hard and soft palate, tongue and posterior pharynx were normal. NECK: Supple. There was no thyroid enlargement, and no tenderness, or masses were felt. CHEST: Normal AP diameter and normal contour without any kyphoscoliosis. LUNGS: Some dullness to percussion and decreased breath sounds at right base posteriorly otherwise clear lungs CARDIAC: There was a regular rate and rhythm without any murmurs, gallops, rubs. ABDOMEN: Soft and nontender with normal bowel sounds. There was no organomegaly. LYMPH NODES: No lymphadenopathy was appreciated in the neck. EXTREMITIES: No cyanosis, clubbing; 1+ pedal edema. NEUROLOGIC: Alert and oriented x 3. Normal affect. Objective Data Vital Signs Vital Signs: Vital Signs - 24 hr 11/10/23 10:08 11/10/23 11:21 11/10/23 13:21 Temperature 36.3 C L Pulse Rate 90 Respiratory Rate 16 Blood Pressure 117/54 L Pulse Oximetry 97 91 Oxygen Delivery Nasal Cannula High Flow Nasal Cannula Oxygen Flow Rate 10 8 11/10/23 13:21 11/10/23 13:28 11/10/23 13:37 Temperature Pulse Rate 97 98 91 Respiratory Rate 20 20 25 H Blood Pressure Pulse Oximetry 95 Oxygen Delivery BiPAP Oxygen Flow Rate 11/10/23 15:04 11/10/23 14:55 11/10/23 12:00 Temperature Pulse Rate 96 Respiratory Rate 20 Blood Pressure Pulse Oximetry 96 94 Oxygen Delivery High Flow Therapy with Na High Flow Nasal Cannula High Flow Nasal Cannula Oxygen Flow Rate 12 15 9 11/10/23 12:00 11/10/23 14:00 11/10/23 17:06 Temperature 36.4 C Pulse Rate 90 99 87 Respiratory Rate 22 H Blood Pressure 152/65 H Pulse Oximetry 96 Oxygen Delivery Oxygen
--- NOTE | 2023-11-11 10:38 | PM.PNCARD ---
Progress Note: A&P Assessment and Plan (1) Acute heart failure with preserved ejection fraction (HFpEF): Code(s): I50.31 - Acute diastolic (congestive) heart failure Status: Acute Assessment and Plan: Continue with Lasix 40mg IV BID for now. With his right ventricular enlargement, morbid obesity, sleep apnea, ascites; his volume overload is likely secondary to right-sided failure with some contribution from left-sided diastolic dysfunction. Continue Jardiance. Will give a dose of metolazone today 5 mg p.o. x1 (2) Acute respiratory failure with hypoxia and hypercapnia: Code(s): J96.01 - Acute respiratory failure with hypoxia; J96.02 - Acute respiratory failure with hypercapnia Status: Acute Assessment and Plan: Wean oxygen as tolerated. Pulmonary has been consulted as well. (3) HTN (hypertension): Qualifiers: Hypertension type: primary hypertension Qualified Code(s): I10 - Essential (primary) hypertension Code(s): I10 - Essential (primary) hypertension Status: Chronic Assessment and Plan: Continue Enalapril. If he needs additional blood pressure control, would recommend Spironolactone (4) Diabetes: Qualifiers: Diabetes mellitus type: type 2 Diabetes mellitus fci insulin use: without manager intermediate use Diabetes mellitus complication status: with hypoglycemia Diabetes mellitus complication detail: without coma Qualified Code(s): E11.649 - Type 2 diabetes mellitus with hypoglycemia without coma Code(s): E11.9 - Type 2 diabetes mellitus without complications Status: Acute Assessment and Plan: Hgb A1c is 9.2. Management as per primary team. Patient is on Pioglitazone at home. Given heart failure, recommend that Pioglitazone be discontinued completely. Recommend referral to outpatient Endocrinology for long-term management of his diabetes. (5) CKD (chronic kidney disease): Code(s): N18.9 - Chronic kidney disease, unspecified Status: Acute Assessment and Plan: Baseline SCr levels not known. However, his SCr is improving with diuresis. Subjective Date/time seen: 11/11/23 10:38 Interval history: Reason for visit: HFpEF, right heart failure HPI: We are consulted for CHF. This is a 63 year old male with hypertension, hyperlipidemia, ALEXANDRO, type 2 diabetes mellitus, GERD who was admitted on 11/05/2023 for shortness of breath, generalized weakness, requiring BIPAP and now high flow nasal cannula. Has been having shortness of breath over the past few months, worsening over the past week. Initial chest CTA on admission showed moderate right pleural effusion with extensive right middle lobe atelectasis, small amount of abdominal ascites. He underwent a thoracentesis on 11/04 with removal of 700ccs of fluid. CXR 11/06 shows persistent airspace opacities in the right middle lung, consistent with atelectasis versus pneumonia. NT pro BNP 16,000 on admission. Troponins are 0.245, 0.260, 0.260. EKG with sinus rhythm, incomplete right bundle branch block, nonspecific T wave abnormality. He states his breathing is feeling better now and denies shortness of breath at rest, however, he remains on high flow nasal cannula. Echocardiogram 11/05/2023 shows LV hypertrophy with well-preserved systolic function, moderately enlarged RV, mild biatrial dilation, small amount of MR/TR. Date of service 11/08: He states that he feels a little bit better and is less short of breath. No chest pain. Date of service 11/09: Diuresing well now. Feeling bit better. Legs feel less tight. Date of service 11/11/2023: Still diuresing. Abdomen feels a little less distended. Scrotal edema noted. Legs are still swollen. Review of Systems Review of Systems: All systems reviewed & are unremarkable except as noted in HPI and below (HPI) Constitutional: Constitutional: Denies body ache(s) ENT: Reports Normal hearing present Respiratory: Respiratory: Denies hemoptysis Gas
[2023-11-11 11:47] LABS: Glucose Point of Care 153 mg/dl (65-105)
[2023-11-11] MEDS: metOLazone 5 MG TABLET PO (11:57)
--- NOTE | 2023-11-11 12:39 | PCNWS ---
Weekly nutritional screen. Patient is tolerating current Heart healthy, diabetic consistent carb diet with adequate intake, 100% all meals. No weight loss reported. No nutritional needs at this time.
--- NOTE | 2023-11-11 16:38 | PM.IMPN ---
Progress Note: A&P Assessment and Plan (1) Acute respiratory failure with hypoxia and hypercapnia: Code(s): J96.01 - Acute respiratory failure with hypoxia; J96.02 - Acute respiratory failure with hypercapnia Status: Acute Assessment and Plan: - chest CTA: No evidence of pulmonary embolus, aortic dissection, or aortic aneurysm. Moderate right pleural effusion with extensive right middle lobe atelectasis. likely from pulm edema CXR this morning showed small pleural effusion.Airspace opacities at the lung bases with improvement on the right, likely atelectasis. prn BiPAP repeat CXR and abg Pulm consulted patient everyday smoker, started on nebulizers scheduled and inhaled steroid d/c Rocephin and Azithromycin (2) Pleural effusion: Code(s): J90 - Pleural effusion, not elsewhere classified Status: Acute Assessment and Plan: - CTA showing a moderate right pleural effusion - plan for diagnostic thoracentesis this afternoon - BNP 16,000 ECHO showed grade I diastolic dysfunction Continue Lasix S/p thoracentesis and pleural fluid culture negative However pleural protein, glucose and LDH still pending (3) Abdominal ascites: Qualifiers: Ascites type: other type Qualified Code(s): R18.8 - Other ascites Code(s): R18.8 - Other ascites Status: Acute Assessment and Plan: -Ordered US RUQ - CT abdomen/pelvis: Moderate abdominopelvic ascites. Moderate pleural effusion. Questionable 4.6 x 3.0 cm fat attenuation lesion just medial to the left kidney. Consider follow-up exam in 6 months to one year to reassess. - total bilirubin, AST, ALT, alk phos WNL from volume overload (4) Diabetes: Qualifiers: Diabetes mellitus type: type 2 Diabetes mellitus mcfp insulin use: without mcfp use Diabetes mellitus complication status: with hypoglycemia Diabetes mellitus complication detail: without coma Qualified Code(s): E11.649 - Type 2 diabetes mellitus with hypoglycemia without coma Code(s): E11.9 - Type 2 diabetes mellitus without complications Status: Acute Assessment and Plan: hypoglycemia resolved SSI with accucheks, and adjust with clinical course (5) Urinary retention: Code(s): R33.9 - Retention of urine, unspecified Status: Acute Assessment and Plan: - patient has been given lasix with no UOP, bladder scan showing 500+ mL - place lazcano, patient reported to bedside RN that he will not likely keep it in place - UA w/reflex added - flomax daily initiated - will need follow-up with urology outpatient if fails voiding trial (6) HTN (hypertension): Qualifiers: Hypertension type: primary hypertension Qualified Code(s): I10 - Essential (primary) hypertension Code(s): I10 - Essential (primary) hypertension Status: Chronic Assessment and Plan: hold home meds and titrate with clinical course (7) Sleep apnea: Qualifiers: Sleep apnea type: unspecified type Qualified Code(s): G47.30 - Sleep apnea, unspecified Code(s): G47.30 - Sleep apnea, unspecified Status: Chronic Assessment and Plan: - continue home BiPAP Plan Diet: heart healthy DVT Prophylaxis: Sq lovenox Lines: Peripheral Code Status: Full Code Subjective Date/time seen: 11/11/23 16:38 Interval history: Patient was evaluated at the bedside. Patient is inconsistent use with his CPAP during his sleep. Patient antibiotic has been discontinued. Will repeat the chest x-ray tomorrow to reassess the pleural effusion Exam Narrative: General: alert and comfortable Eyes: EOMI, PERRLA ENNT External ears normal, Neck is supple, no masses, Respiratory systems: Clear to auscultation Cardiovascular S1, S2, normal rhythm, no murmur, rub, or gallop; no thrill or palpable murmurs on palpation. Gastrointestinal: soft, non-tender, and non
[2023-11-11 16:40] LABS: Glucose Point of Care 151 mg/dl (65-105)
[2023-11-11 19:51] LABS: Glucose Point of Care 292 mg/dl (65-105)
[2023-11-12] VITALS (27 sets, daily range): BP systolic 116–130; BP diastolic 56–97; PULSE 57–93; RESP 18–23; TEMP 35.9–36.6; O2SAT 90–97
[2023-11-12] MEDS: IPRATROPIUM 0.5 MG/ALBUTEROL SULFATE 2.5 MG AMPUL.NEB 3 ML INHALATION ×4 (02:12→20:42)
[2023-11-12 05:09] LABS: Hematocrit 34.5 % (42.0-52.0); Hemoglobin 10.3 g/dL (14.0-18.0); Mean Corpuscular HGB Conc 29.9 g/dl (32-36); Mean Corpuscular Hemoglobin 25.2 pg (26-34); Mean Corpuscular Volume 84.6 fl (80-100); Mean Platelet Volume 10.2 fl (7.4-10.4); Platelet Count Result 150 k/mm3 (150-375); Red Blood Count 4.08 M/mm3 (4.6-6.20); Red Cell Distribution Width 15.9 % (11.5-14.5); White Blood Count 8.1 K/mm3 (4.5-10.0)
[2023-11-12 05:38] LABS: Alanine Aminotransferase 15 U/L (6-50); Albumin Level 3.4 g/dL (3.5-5.1); Alkaline Phosphatase 80 U/L (38-126); Aspartate Amino Transferase 26 U/L (17-59); Bilirubin,Total 0.6 mg/dL (0.2-1.3); Blood Urea Nitrogen 26 mg/dL (9-20); Calcium 8.5 mg/dL (8.4-10.2); Carbon Dioxide > 40 mmol/L (22-30); Chloride 85 mmol/L (98-107); Estimated CRCL calculation 79 ml/min; Estimated Glomerular Filt Rate > 60; Glucose 166 mg/dL (65-110); Potassium 3.7 mmol/L (3.4-5.0); Sodium 132 mmol/L (137-145)
[2023-11-12 07:18] LABS: Glucose Point of Care 166 mg/dl (65-105)
[2023-11-12] MEDS: FLUTICASONE PROP 44 MCG (*SP) 10.6 GM 2 PUFF INHALATION ×2 (07:31→20:42)
[2023-11-12] MEDS: TAMSULOSIN HCL 0.4 MG CAPSULE PO (08:41)
[2023-11-12] MEDS: FUROSEMIDE INJ 40 MG/4 ML VIAL IV PUSH ×2 (08:41→17:15)
[2023-11-12] MEDS: ENALAPRIL MALEATE 10 MG TABLET 20 MG PO (08:42)
[2023-11-12] MEDS: ATORVASTATIN 40 MG TABLET PO (08:44)
[2023-11-12] MEDS: EMPAGLIFLOZIN 10 MG TABLET PO (08:44)
[2023-11-12] MEDS: ENOXAPARIN 40 MG/0.4 ML SYRINGE SUB-Q (08:44)
--- NOTE | 2023-11-12 08:44 | PCNWS ---
Weekly nutritional screen. Patient is tolerating current diabetic diet with adequate intake 100% all meals. No weight loss reported. No nutritional needs at this time.
[2023-11-12] MEDS: TOLNAFTATE 1% POWDER 45 GM BTL 1 APPLIC TOPICAL (08:45)
--- NOTE | 2023-11-12 09:52 | PM.PNPUL ---
Progress Note: A&P Assessment and Plan (1) Acute respiratory failure with hypoxia and hypercapnia: Code(s): J96.01 - Acute respiratory failure with hypoxia; J96.02 - Acute respiratory failure with hypercapnia Status: Acute Assessment and Plan: The patient's respiratory status appears to be improving following thoracentesis and treatment for congestive heart failure. Notably, there is a significant reduction in lower extremity edema. However, over the past 24 hours, his oxygen requirements have increased. A new chest X-ray performed today revealed a small pleural effusion on the right side and right middle lobe atelectasis. These findings likely explain the increased FiO2 needed to maintain oxygen saturation above 90%. Aside from this, his respiratory status has been stable over the last few days. The patient brought his home CPAP machine, but it cannot be used currently due to the high FiO2 required to maintain adequate gas exchange. This need is related to the newly identified right middle lobe atelectasis and small right pleural effusion seen on today's X-ray. Plan: Continue with BiPAP support as ordered. Consider BiPAP support during the day for few hours. Intensify incentive spirometry. Encourage the patient to get out of bed and sit in a chair. Continue nebulized short-acting bronchodilators. Once the atelectasis resolves and FiO2 requirements decrease to around 4-5 liters/minute, we will test the patient on his home CPAP with supplemental oxygen and conduct an ApneaLink study. We will continue to follow up with you. (2) Pleural effusion: Code(s): J90 - Pleural effusion, not elsewhere classified Status: Acute (3) Diabetes: Qualifiers: Diabetes mellitus type: type 2 Diabetes mellitus long-term insulin use: without stock control supervisor use Diabetes mellitus complication status: with hypoglycemia Diabetes mellitus complication detail: without coma Qualified Code(s): E11.649 - Type 2 diabetes mellitus with hypoglycemia without coma Code(s): E11.9 - Type 2 diabetes mellitus without complications Status: Acute (4) Acute heart failure with preserved ejection fraction (HFpEF): Code(s): I50.31 - Acute diastolic (congestive) heart failure Status: Acute Subjective Date/time seen: 11/12/23 09:52 Interval history: Patient did not use BiPAP support last night. Brought own home CPAP machine has not used it yet. He remains on relatively high FiO2 via high-flow nasal cannula. His respiratory status as indicated has improved. Lower extremity edema significantly less. Review of Systems Review of Systems: All systems reviewed & are unremarkable except as noted in HPI and below (HPI and below) Exam Narrative: GENERAL APPEARANCE: Well developed, well nourished, alert and cooperative, and appears to be in no acute distress while on supplemental oxygen via nasal cannula SKIN: Inspection of the skin reveals no rashes, ulcerations or petechiae. HEENT: Sclerae anicteric and conjunctivae pink and moist. Extraocular movements were intact and pupils were equal, round, and reactive to light. The oral mucosa, hard and soft palate, tongue and posterior pharynx were normal. NECK: Supple. There was no thyroid enlargement, and no tenderness, or masses were felt. CHEST: Normal AP diameter and normal contour without any kyphoscoliosis. LUNGS: Some dullness to percussion and decreased breath sounds at right base posteriorly otherwise clear lungs CARDIAC: There was a regular rate and rhythm without any murmurs, gallops, rubs. ABDOMEN: Soft and nontender with normal bowel sounds. There was no organomegaly. LYMPH NODES: No lymphadenopathy was appreciated in the neck. EXTREMITIES: No cyanosis, clubbing; 1+ pedal edema. NEUROLOGIC: Alert and oriented x 3. Normal affect. Objective Data Vital Signs Vital Signs: Vital Signs - 24 hr 11/11/23 10:00 11/11/23 12:00 11/11/23 14:05 Temperature
--- NOTE | 2023-11-12 10:47 | PM.PNCARD ---
Progress Note: A&P Assessment and Plan (1) Acute heart failure with preserved ejection fraction (HFpEF): Code(s): I50.31 - Acute diastolic (congestive) heart failure Status: Acute Assessment and Plan: Continue with Lasix 40mg IV BID for now. With his right ventricular enlargement, morbid obesity, sleep apnea, ascites; his volume overload is likely secondary to right-sided failure with some contribution from left-sided diastolic dysfunction. Continue Jardiance. Will give a dose of Metolazone today 5 mg PO x 1. (2) Acute respiratory failure with hypoxia and hypercapnia: Code(s): J96.01 - Acute respiratory failure with hypoxia; J96.02 - Acute respiratory failure with hypercapnia Status: Acute Assessment and Plan: Wean oxygen as tolerated. Pulmonary has been consulted as well. (3) HTN (hypertension): Qualifiers: Hypertension type: primary hypertension Qualified Code(s): I10 - Essential (primary) hypertension Code(s): I10 - Essential (primary) hypertension Status: Chronic Assessment and Plan: Continue Enalapril. If he needs additional blood pressure control, would recommend Spironolactone (4) Diabetes: Qualifiers: Diabetes mellitus type: type 2 Diabetes mellitus chcf insulin use: without chcf use Diabetes mellitus complication status: with hypoglycemia Diabetes mellitus complication detail: without coma Qualified Code(s): E11.649 - Type 2 diabetes mellitus with hypoglycemia without coma Code(s): E11.9 - Type 2 diabetes mellitus without complications Status: Acute Assessment and Plan: Hgb A1c is 9.2. Management as per primary team. Patient is on Pioglitazone at home. Given heart failure, recommend that Pioglitazone be discontinued completely. Recommend referral to outpatient Endocrinology for long-term management of his diabetes. (5) CKD (chronic kidney disease): Code(s): N18.9 - Chronic kidney disease, unspecified Status: Acute Assessment and Plan: Baseline SCr levels not known. However, his SCr is improving with diuresis. POLO now resolved. Subjective Date/time seen: 11/12/23 10:47 Interval history: Reason for visit: HFpEF, right heart failure HPI: We are consulted for CHF. This is a 63 year old male with hypertension, hyperlipidemia, ALEXANDRO, type 2 diabetes mellitus, GERD who was admitted on 11/05/2023 for shortness of breath, generalized weakness, requiring BIPAP and now high flow nasal cannula. Has been having shortness of breath over the past few months, worsening over the past week. Initial chest CTA on admission showed moderate right pleural effusion with extensive right middle lobe atelectasis, small amount of abdominal ascites. He underwent a thoracentesis on 11/04 with removal of 700ccs of fluid. CXR 11/06 shows persistent airspace opacities in the right middle lung, consistent with atelectasis versus pneumonia. NT pro BNP 16,000 on admission. Troponins are 0.245, 0.260, 0.260. EKG with sinus rhythm, incomplete right bundle branch block, nonspecific T wave abnormality. He states his breathing is feeling better now and denies shortness of breath at rest, however, he remains on high flow nasal cannula. Echocardiogram 11/05/2023 shows LV hypertrophy with well-preserved systolic function, moderately enlarged RV, mild biatrial dilation, small amount of MR/TR. Date of service 11/08: He states that he feels a little bit better and is less short of breath. No chest pain. Date of service 11/09: Diuresing well now. Feeling bit better. Legs feel less tight. Date of service 11/11/2023: Still diuresing. Abdomen feels a little less distended. Scrotal edema noted. Legs are still swollen. Date of service 11/11: Still diuresing well. Review of Systems Review of Systems: All systems reviewed & are unremarkable except as noted in HPI and below (HPI) Exam Const: General: comfortable and no acute distress HENMT: Mouth: Y
[2023-11-12 12:06] LABS: Glucose Point of Care 180 mg/dl (65-105)
[2023-11-12] MEDS: metOLazone 5 MG TABLET PO (12:07)
[2023-11-12] MEDS: SALINE 0.65% NAS SOLN 44 ML BTL 1 SPRAY NASAL (12:07)
--- NOTE | 2023-11-12 15:45 | PM.IMPN ---
Progress Note: A&P Assessment and Plan (1) Acute respiratory failure with hypoxia and hypercapnia: Code(s): J96.01 - Acute respiratory failure with hypoxia; J96.02 - Acute respiratory failure with hypercapnia Status: Acute Assessment and Plan: - chest CTA: No evidence of pulmonary embolus, aortic dissection, or aortic aneurysm. Moderate right pleural effusion with extensive right middle lobe atelectasis. likely from pulm edema CXR this morning showed small pleural effusion.Airspace opacities at the lung bases with improvement on the right, likely atelectasis. prn BiPAP repeat CXR and abg patient everyday smoker, started on nebulizers scheduled and inhaled steroid d/c Rocephin and Azithromycin Pulm consulted recommends: Continue with BiPAP support as ordered. Consider BiPAP support during the day for few hours. Intensify incentive spirometry. Encourage the patient to get out of bed and sit in a chair. Continue nebulized short-acting bronchodilators. Once the atelectasis resolves and FiO2 requirements decrease to around 4-5 liters/minute, we will test the patient on his home CPAP with supplemental oxygen and conduct an ApneaLink study (2) Pleural effusion: Code(s): J90 - Pleural effusion, not elsewhere classified Status: Acute Assessment and Plan: - CTA showing a moderate right pleural effusion - plan for diagnostic thoracentesis this afternoon - BNP 16,000 ECHO showed grade I diastolic dysfunction Continue Lasix S/p thoracentesis and pleural fluid culture negative However pleural protein, glucose and LDH still pending (3) Abdominal ascites: Qualifiers: Ascites type: other type Qualified Code(s): R18.8 - Other ascites Code(s): R18.8 - Other ascites Status: Acute Assessment and Plan: -Ordered US RUQ - CT abdomen/pelvis: Moderate abdominopelvic ascites. Moderate pleural effusion. Questionable 4.6 x 3.0 cm fat attenuation lesion just medial to the left kidney. Consider follow-up exam in 6 months to one year to reassess. - total bilirubin, AST, ALT, alk phos WNL from volume overload (4) Diabetes: Qualifiers: Diabetes mellitus complication detail: without coma Diabetes mellitus complication status: with hypoglycemia Diabetes mellitus termite treater insulin use: without fpc use Diabetes mellitus type: type 2 Qualified Code(s): E11.649 - Type 2 diabetes mellitus with hypoglycemia without coma Code(s): E11.9 - Type 2 diabetes mellitus without complications Status: Acute Assessment and Plan: hypoglycemia resolved SSI with accucheks, and adjust with clinical course (5) Urinary retention: Code(s): R33.9 - Retention of urine, unspecified Status: Acute Assessment and Plan: - patient has been given lasix with no UOP, bladder scan showing 500+ mL - place lazcano, patient reported to bedside RN that he will not likely keep it in place - UA w/reflex added - flomax daily initiated - will need follow-up with urology outpatient if fails voiding trial (6) HTN (hypertension): Qualifiers: Hypertension type: primary hypertension Qualified Code(s): I10 - Essential (primary) hypertension Code(s): I10 - Essential (primary) hypertension Status: Chronic Assessment and Plan: hold home meds and titrate with clinical course (7) Sleep apnea: Qualifiers: Sleep apnea type: unspecified type Qualified Code(s): G47.30 - Sleep apnea, unspecified Code(s): G47.30 - Sleep apnea, unspecified Status: Chronic Assessment and Plan: - continue home BiPAP Plan Diet: heart healthy DVT Prophylaxis: Sq lovenox Lines: Peripheral Code Status: Full Code Subjective Date/time seen: 11/12/23 15:45 Interval history: Patient reports being well better than yesterday. Advised the patient to sit in the chair and use BiPAP
[2023-11-12] MEDS: WATER FOR IRRIGATION, STERILE 1,000 ML BOTTLE 1000 ML (15:46)
[2023-11-12 16:04] LABS: Glucose Point of Care 178 mg/dl (65-105)
[2023-11-12 19:52] LABS: Glucose Point of Care 189 mg/dl (65-105)
[2023-11-12] MEDS: MELATONIN 3 MG TABLET PO (21:08)
[2023-11-13] VITALS (24 sets, daily range): BP systolic 96–131; BP diastolic 48–75; PULSE 81–101; RESP 16–23; TEMP 36.1–37.1; O2SAT 90–99
[2023-11-13] MEDS: IPRATROPIUM 0.5 MG/ALBUTEROL SULFATE 2.5 MG AMPUL.NEB 3 ML INHALATION ×4 (01:59→20:22)
[2023-11-13] MEDS: SALINE 0.65% NAS SOLN 44 ML BTL 1 SPRAY NASAL ×2 (04:20→20:15)
[2023-11-13 05:33] LABS: Hematocrit 34.6 % (42.0-52.0); Hemoglobin 10.3 g/dL (14.0-18.0); Mean Corpuscular HGB Conc 29.8 g/dl (32-36); Mean Corpuscular Hemoglobin 25.1 pg (26-34); Mean Corpuscular Volume 84.4 fl (80-100); Mean Platelet Volume 9.9 fl (7.4-10.4); Platelet Count Result 151 k/mm3 (150-375); Red Cell Distribution Width 15.9 % (11.5-14.5); White Blood Count 7.3 K/mm3 (4.5-10.0)
[2023-11-13 05:44] LABS: Alanine Aminotransferase 16 U/L (6-50); Albumin Level 3.4 g/dL (3.5-5.1); Alkaline Phosphatase 68 U/L (38-126); Aspartate Amino Transferase 28 U/L (17-59); Bilirubin,Total 0.8 mg/dL (0.2-1.3); Blood Urea Nitrogen 18 mg/dL (9-20); Calcium 8.7 mg/dL (8.4-10.2); Carbon Dioxide > 40 mmol/L (22-30); Chloride 82 mmol/L (98-107); Estimated CRCL calculation 86 ml/min; Estimated Glomerular Filt Rate > 60; Glucose 128 mg/dL (65-110); Potassium 3.1 mmol/L (3.4-5.0); Sodium 134 mmol/L (137-145)
[2023-11-13 07:44] LABS: Glucose Point of Care 135 mg/dl (65-105)
[2023-11-13] MEDS: FUROSEMIDE INJ 40 MG/4 ML VIAL IV PUSH ×2 (08:35→17:37)
[2023-11-13] MEDS: ENOXAPARIN 40 MG/0.4 ML SYRINGE SUB-Q (08:35)
[2023-11-13] MEDS: ENALAPRIL MALEATE 10 MG TABLET 20 MG PO (08:35)
[2023-11-13] MEDS: EMPAGLIFLOZIN 10 MG TABLET PO (08:35)
[2023-11-13] MEDS: ATORVASTATIN 40 MG TABLET PO (08:36)
[2023-11-13] MEDS: TAMSULOSIN HCL 0.4 MG CAPSULE PO (08:36)
[2023-11-13] MEDS: TOLNAFTATE 1% POWDER 45 GM BTL 1 APPLIC TOPICAL (08:37)
[2023-11-13] MEDS: FLUTICASONE PROP 44 MCG (*SP) 10.6 GM 2 PUFF INHALATION ×2 (09:40→20:23)
--- NOTE | 2023-11-13 10:40 | PM.PNCARD ---
Progress Note: A&P Assessment and Plan (1) Acute heart failure with preserved ejection fraction (HFpEF): Code(s): I50.31 - Acute diastolic (congestive) heart failure Status: Acute Assessment and Plan: Continue with Lasix 40mg IV BID for now. With his right ventricular enlargement, morbid obesity, sleep apnea, ascites; his volume overload is likely secondary to right-sided failure with some contribution from left-sided diastolic dysfunction. Continue Jardiance. Will give another dose of Metolazone today 5 mg PO x 1, he is still ~2.5L fluid balance positive. K+ 3.1 today, will give KCL 40 mEq X 1. (2) Acute respiratory failure with hypoxia and hypercapnia: Code(s): J96.01 - Acute respiratory failure with hypoxia; J96.02 - Acute respiratory failure with hypercapnia Status: Acute Assessment and Plan: Wean oxygen as tolerated. Pulmonary has been consulted as well. (3) HTN (hypertension): Qualifiers: Hypertension type: primary hypertension Qualified Code(s): I10 - Essential (primary) hypertension Code(s): I10 - Essential (primary) hypertension Status: Chronic Assessment and Plan: Continue Enalapril. If he needs additional blood pressure control, would recommend Spironolactone (4) Diabetes: Qualifiers: Diabetes mellitus type: type 2 Diabetes mellitus halfway insulin use: without exterminator helper use Diabetes mellitus complication status: with hypoglycemia Diabetes mellitus complication detail: without coma Qualified Code(s): E11.649 - Type 2 diabetes mellitus with hypoglycemia without coma Code(s): E11.9 - Type 2 diabetes mellitus without complications Status: Acute Assessment and Plan: Hgb A1c is 9.2. Management as per primary team. Patient is on Pioglitazone at home. Given heart failure, recommend that Pioglitazone be discontinued completely. Recommend referral to outpatient Endocrinology for long-term management of his diabetes. (5) CKD (chronic kidney disease): Code(s): N18.9 - Chronic kidney disease, unspecified Status: Acute Assessment and Plan: Baseline SCr levels not known. However, his SCr is improving with diuresis. POLO now resolved. Subjective Date/time seen: 11/13/23 10:40 Interval history: Reason for visit: HFpEF, right heart failure HPI: We are consulted for CHF. This is a 63 year old male with hypertension, hyperlipidemia, ALEXANDRO, type 2 diabetes mellitus, GERD who was admitted on 11/05/2023 for shortness of breath, generalized weakness, requiring BIPAP and now high flow nasal cannula. Has been having shortness of breath over the past few months, worsening over the past week. Initial chest CTA on admission showed moderate right pleural effusion with extensive right middle lobe atelectasis, small amount of abdominal ascites. He underwent a thoracentesis on 11/04 with removal of 700ccs of fluid. CXR 11/06 shows persistent airspace opacities in the right middle lung, consistent with atelectasis versus pneumonia. NT pro BNP 16,000 on admission. Troponins are 0.245, 0.260, 0.260. EKG with sinus rhythm, incomplete right bundle branch block, nonspecific T wave abnormality. He states his breathing is feeling better now and denies shortness of breath at rest, however, he remains on high flow nasal cannula. Echocardiogram 11/05/2023 shows LV hypertrophy with well-preserved systolic function, moderately enlarged RV, mild biatrial dilation, small amount of MR/TR. Date of service 11/08: He states that he feels a little bit better and is less short of breath. No chest pain. Date of service 11/09: Diuresing well now. Feeling bit better. Legs feel less tight. Date of service 11/11/2023: Still diuresing. Abdomen feels a little less distended. Scrotal edema noted. Legs are still swollen. Date of service 11/11: Still diuresing well. Date of service 11/13/2023: Lower extremity edema improved. Reports less shortness of breath but still has
[2023-11-13] MEDS: POTASSIUM CHLORIDE 20 MEQ ER TABLET 40 MEQ PO (11:01)
[2023-11-13 11:22] LABS: NT Pro B Type Natriuretic Pept 11700 pg/mL (19.9-100)
[2023-11-13 11:48] LABS: Glucose Point of Care 157 mg/dl (65-105)
--- NOTE | 2023-11-13 12:47 | PM.PNPUL ---
Progress Note: A&P Assessment and Plan (1) Acute respiratory failure with hypoxia and hypercapnia: Code(s): J96.01 - Acute respiratory failure with hypoxia; J96.02 - Acute respiratory failure with hypercapnia Status: Acute Assessment and Plan: The patient's respiratory status appears to be improving following thoracentesis and treatment for congestive heart failure. Notably, there is a significant reduction in lower extremity edema. However, over the past 48 hours, his oxygen requirements have increased. A new chest X-ray performed yesterday revealed a small pleural effusion on the right side and right middle lobe atelectasis. These findings likely explain the increased FiO2 needed to maintain oxygen saturation above 90%. Gas exchange has not improved over the last 24 hours despite treatment for congestive heart failure and incentive spirometry to reverse atelectasis. The higher oxygen needs are probably related to the reaccumulation of the right pleural effusion with associated atelectasis. Plan: Continue with BiPAP support as ordered. Consider BiPAP support during the day for a few hours. Intensify incentive spirometry. Encourage the patient to get out of bed and sit in a chair. Continue nebulized short-acting bronchodilators. Repeat chest CT to assess for possible pleural effusion reaccumulation and the extent of atelectasis. (2) Pleural effusion: Code(s): J90 - Pleural effusion, not elsewhere classified Status: Acute (3) Diabetes: Qualifiers: Diabetes mellitus type: type 2 Diabetes mellitus nursing home insulin use: without intermission coordinator use Diabetes mellitus complication status: with hypoglycemia Diabetes mellitus complication detail: without coma Qualified Code(s): E11.649 - Type 2 diabetes mellitus with hypoglycemia without coma Code(s): E11.9 - Type 2 diabetes mellitus without complications Status: Acute (4) Acute heart failure with preserved ejection fraction (HFpEF): Code(s): I50.31 - Acute diastolic (congestive) heart failure Status: Acute Subjective Date/time seen: 11/13/23 12:47 Interval history: Patient offers no new respiratory symptoms although he continues to require high FiO2. Reportedly has been using incentive spirometry for right lung atelectasis. Has been no progress as far as gas exchange improvement over the last 24 hours. Patient uses home BiPAP at night supplemental oxygen. Review of Systems Review of Systems: All systems reviewed & are unremarkable except as noted in HPI and below (HPI and below) Exam Narrative: GENERAL APPEARANCE: Well developed, well nourished, alert and cooperative, and appears to be in no acute distress while on supplemental oxygen via nasal cannula SKIN: Inspection of the skin reveals no rashes, ulcerations or petechiae. HEENT: Sclerae anicteric and conjunctivae pink and moist. Extraocular movements were intact and pupils were equal, round, and reactive to light. The oral mucosa, hard and soft palate, tongue and posterior pharynx were normal. NECK: Supple. There was no thyroid enlargement, and no tenderness, or masses were felt. CHEST: Normal AP diameter and normal contour without any kyphoscoliosis. LUNGS: Some dullness to percussion and decreased breath sounds at right base posteriorly otherwise clear lungs CARDIAC: There was a regular rate and rhythm without any murmurs, gallops, rubs. ABDOMEN: Soft and nontender with normal bowel sounds. There was no organomegaly. LYMPH NODES: No lymphadenopathy was appreciated in the neck. EXTREMITIES: No cyanosis, clubbing; 1+ pedal edema. NEUROLOGIC: Alert and oriented x 3. Normal affect. Objective Data Vital Signs Vital Signs: Vital Signs - 24 hr 11/12/23 13:15 11/12/23 13:25 11/12/23 14:00 Temperature Pulse Rate 89 92 85 Respiratory Rate 20 20 Blood Pressure Pulse Oximetry Oxygen Delivery Oxygen Flow Rate Fraction of Inspired Oxygen
--- NOTE | 2023-11-13 13:53 | PC.NURSE ---
pt down to CT with float nurse eren and transport, on hi flow nc
[2023-11-13 16:48] LABS: Glucose Point of Care 165 mg/dl (65-105)
--- NOTE | 2023-11-13 17:21 | PM.IMPN ---
Progress Note: A&P Assessment and Plan (1) Acute respiratory failure with hypoxia and hypercapnia: Code(s): J96.01 - Acute respiratory failure with hypoxia; J96.02 - Acute respiratory failure with hypercapnia Status: Acute Assessment and Plan: - chest CTA: No evidence of pulmonary embolus, aortic dissection, or aortic aneurysm. Moderate right pleural effusion with extensive right middle lobe atelectasis. likely from pulm edema CXR this morning showed small pleural effusion.Airspace opacities at the lung bases with improvement on the right, likely atelectasis. prn BiPAP repeat CXR and abg patient everyday smoker, started on nebulizers scheduled and inhaled steroid d/c Rocephin and Azithromycin Pulm consulted recommends: Continue with BiPAP support as ordered. Consider BiPAP support during the day for few hours. Intensify incentive spirometry. Encourage the patient to get out of bed and sit in a chair. Continue nebulized short-acting bronchodilators. Once the atelectasis resolves and FiO2 requirements decrease to around 4-5 liters/minute, we will test the patient on his home CPAP with supplemental oxygen and conduct an ApneaLink study (2) Pleural effusion: Code(s): J90 - Pleural effusion, not elsewhere classified Status: Acute Assessment and Plan: - CTA showing a moderate right pleural effusion - plan for diagnostic thoracentesis this afternoon - BNP 16,000 ECHO showed grade I diastolic dysfunction Continue Lasix S/p thoracentesis and pleural fluid culture negative However pleural protein, glucose and LDH still pending (3) Abdominal ascites: Qualifiers: Ascites type: other type Qualified Code(s): R18.8 - Other ascites Code(s): R18.8 - Other ascites Status: Acute Assessment and Plan: -Ordered US RUQ - CT abdomen/pelvis: Moderate abdominopelvic ascites. Moderate pleural effusion. Questionable 4.6 x 3.0 cm fat attenuation lesion just medial to the left kidney. Consider follow-up exam in 6 months to one year to reassess. - total bilirubin, AST, ALT, alk phos WNL from volume overload (4) Diabetes: Qualifiers: Diabetes mellitus type: type 2 Diabetes mellitus terminal computer operator insulin use: without half-way use Diabetes mellitus complication status: with hypoglycemia Diabetes mellitus complication detail: without coma Qualified Code(s): E11.649 - Type 2 diabetes mellitus with hypoglycemia without coma Code(s): E11.9 - Type 2 diabetes mellitus without complications Status: Acute Assessment and Plan: hypoglycemia resolved SSI with accucheks, and adjust with clinical course (5) Urinary retention: Code(s): R33.9 - Retention of urine, unspecified Status: Acute Assessment and Plan: - patient has been given lasix with no UOP, bladder scan showing 500+ mL - place lazcano, patient reported to bedside RN that he will not likely keep it in place - UA w/reflex added - flomax daily initiated - will need follow-up with urology outpatient if fails voiding trial (6) HTN (hypertension): Qualifiers: Hypertension type: primary hypertension Qualified Code(s): I10 - Essential (primary) hypertension Code(s): I10 - Essential (primary) hypertension Status: Chronic Assessment and Plan: hold home meds and titrate with clinical course (7) Sleep apnea: Qualifiers: Sleep apnea type: unspecified type Qualified Code(s): G47.30 - Sleep apnea, unspecified Code(s): G47.30 - Sleep apnea, unspecified Status: Chronic Assessment and Plan: - continue home BiPAP Plan Diet: heart healthy DVT Prophylaxis: Sq lovenox Lines: Peripheral Code Status: Full Code Subjective Date/time seen: 11/13/23 17:21 Interval history: patient is clinically doing well. Denies any shortness of breath. Will continue the Lasix 40 mg IV b.i
[2023-11-13 19:56] LABS: Glucose Point of Care 214 mg/dl (65-105)
[2023-11-13] MEDS: MELATONIN 3 MG TABLET PO (20:11)
[2023-11-14] VITALS (26 sets, daily range): BP systolic 100–124; BP diastolic 49–59; PULSE 79–98; RESP 16–22; TEMP 36.1–36.8; O2SAT 90–98
[2023-11-14] MEDS: IPRATROPIUM 0.5 MG/ALBUTEROL SULFATE 2.5 MG AMPUL.NEB 3 ML INHALATION ×4 (01:20→20:13)
[2023-11-14 04:56] LABS: Hematocrit 33.6 % (42.0-52.0); Hemoglobin 10.4 g/dL (14.0-18.0); Mean Corpuscular Hemoglobin 26.2 pg (26-34); Mean Corpuscular Volume 84.6 fl (80-100); Platelet Count Result 148 k/mm3 (150-375); Red Blood Count 3.97 M/mm3 (4.6-6.20); Red Cell Distribution Width 15.9 % (11.5-14.5); White Blood Count 8.6 K/mm3 (4.5-10.0)
[2023-11-14 05:13] LABS: Alanine Aminotransferase 20 U/L (6-50); Albumin Level 3.3 g/dL (3.5-5.1); Alkaline Phosphatase 70 U/L (38-126); Aspartate Amino Transferase 32 U/L (17-59); Bilirubin,Total 0.8 mg/dL (0.2-1.3); Blood Urea Nitrogen 14 mg/dL (9-20); Calcium 8.9 mg/dL (8.4-10.2); Carbon Dioxide > 40 mmol/L (22-30); Chloride 81 mmol/L (98-107); Estimated CRCL calculation 86 ml/min; Estimated Glomerular Filt Rate > 60; Glucose 145 mg/dL (65-110); Potassium 3.5 mmol/L (3.4-5.0); Sodium 133 mmol/L (137-145)
[2023-11-14] MEDS: FLUTICASONE PROP 44 MCG (*SP) 10.6 GM 2 PUFF INHALATION ×2 (07:15→20:13)
[2023-11-14 07:48] LABS: Glucose Point of Care 133 mg/dl (65-105)
[2023-11-14] MEDS: ATORVASTATIN 40 MG TABLET PO (09:09)
[2023-11-14] MEDS: EMPAGLIFLOZIN 10 MG TABLET PO (09:09)
[2023-11-14] MEDS: TOLNAFTATE 1% POWDER 45 GM BTL 1 APPLIC TOPICAL (09:09)
[2023-11-14] MEDS: FUROSEMIDE INJ 40 MG/4 ML VIAL IV PUSH ×2 (09:09→20:10)
[2023-11-14] MEDS: TAMSULOSIN HCL 0.4 MG CAPSULE PO (09:09)
[2023-11-14] MEDS: ENOXAPARIN 40 MG/0.4 ML SYRINGE SUB-Q (09:09)
[2023-11-14] MEDS: ENALAPRIL MALEATE 10 MG TABLET 20 MG PO (09:09)
[2023-11-14] MEDS: SALINE 0.65% NAS SOLN 44 ML BTL 1 SPRAY NASAL (09:10)
--- NOTE | 2023-11-14 09:33 | PM.PNPUL ---
Progress Note: A&P Assessment and Plan (1) Acute respiratory failure with hypoxia and hypercapnia: Code(s): J96.01 - Acute respiratory failure with hypoxia; J96.02 - Acute respiratory failure with hypercapnia Status: Acute Assessment and Plan: The patient's respiratory status has been essentially unchanged over the last 24 hours. Patient has been coughing up some dark phlegm but has had no signs of lower respiratory tract infection. His WBC has been within normal range. On the new chest CT patient had increasing right pleural effusion mild lung congestion and right middle lobe atelectasis. The high FiO2 is obviously related to atelectasis caused by the right pleural effusion and also the right middle lobe atelectasis which was also present on previous chest CT. It is unclear whether these right middle lobe atelectasis related to mucous plugging or other intraluminal cause. Patient has been on treatment for congestive heart failure which resulted in significant improvement of his shortness of breath and also lower extremity edema. Plan: Have added nebulized mucolytic agent 4 times daily regarding possible mucus plugging right middle lobe Continue with BiPAP support as ordered. Consider BiPAP support during the day for a few hours. Intensify incentive spirometry. Encourage the patient to get out of bed and sit in a chair. Continue nebulized short-acting bronchodilators. Repeat chest x-ray in a.m. (2) Pleural effusion: Code(s): J90 - Pleural effusion, not elsewhere classified Status: Acute (3) Diabetes: Qualifiers: Diabetes mellitus type: type 2 Diabetes mellitus penitentiary insulin use: without vermin exterminator use Diabetes mellitus complication status: with hypoglycemia Diabetes mellitus complication detail: without coma Qualified Code(s): E11.649 - Type 2 diabetes mellitus with hypoglycemia without coma Code(s): E11.9 - Type 2 diabetes mellitus without complications Status: Acute (4) Acute heart failure with preserved ejection fraction (HFpEF): Code(s): I50.31 - Acute diastolic (congestive) heart failure Status: Acute Subjective Date/time seen: 11/14/23 09:33 Interval history: Patient continues to require relatively high FiO2. He has had some dark sputum production but no fever chills hemoptysis night sweats. Lower extremity edema significantly improved. Using hospital BiPAP at night, incentive spirometry every hour in the day. Review of Systems Review of Systems: All systems reviewed & are unremarkable except as noted in HPI and below Exam Narrative: GENERAL APPEARANCE: Well developed, well nourished, alert and cooperative, and appears to be in no acute distress while on supplemental oxygen via nasal cannula SKIN: Inspection of the skin reveals no rashes, ulcerations or petechiae. HEENT: Sclerae anicteric and conjunctivae pink and moist. Extraocular movements were intact and pupils were equal, round, and reactive to light. The oral mucosa, hard and soft palate, tongue and posterior pharynx were normal. NECK: Supple. There was no thyroid enlargement, and no tenderness, or masses were felt. CHEST: Normal AP diameter and normal contour without any kyphoscoliosis. LUNGS: Some dullness to percussion and decreased breath sounds at right base posteriorly otherwise clear lungs CARDIAC: There was a regular rate and rhythm without any murmurs, gallops, rubs. ABDOMEN: Soft and nontender with normal bowel sounds. There was no organomegaly. LYMPH NODES: No lymphadenopathy was appreciated in the neck. EXTREMITIES: No cyanosis, clubbing; 1+ pedal edema. NEUROLOGIC: Alert and oriented x 3. Normal affect. Objective Data Vital Signs Vital Signs: Vital Signs - 24 hr 11/13/23 09:40 11/13/23 09:40 11/13/23 10:00 Temperature Pulse Rate 92 90 Respiratory Rate 20 20 Blood Pressure Pulse Oximetry 92 Oxygen Delivery High Flow Nasal Cannula Oxygen Flow Rat
--- NOTE | 2023-11-14 10:49 | PM.IMPN ---
Progress Note: A&P Assessment and Plan (1) Acute respiratory failure with hypoxia and hypercapnia: Code(s): J96.01 - Acute respiratory failure with hypoxia; J96.02 - Acute respiratory failure with hypercapnia Status: Acute Assessment and Plan: - chest CTA: No evidence of pulmonary embolus, aortic dissection, or aortic aneurysm. Moderate right pleural effusion with extensive right middle lobe atelectasis. likely from pulm edema CXR this morning showed small pleural effusion.Airspace opacities at the lung bases with improvement on the right, likely atelectasis. prn BiPAP repeat CXR and abg patient everyday smoker, started on nebulizers scheduled and inhaled steroid d/c Rocephin and Azithromycin Pulm consulted recommends: Continue with BiPAP support as ordered. Consider BiPAP support during the day for few hours. Intensify incentive spirometry. Encourage the patient to get out of bed and sit in a chair. Continue nebulized short-acting bronchodilators. Once the atelectasis resolves and FiO2 requirements decrease to around 4-5 liters/minute, we will test the patient on his home CPAP with supplemental oxygen and conduct an ApneaLink study (2) Pleural effusion: Code(s): J90 - Pleural effusion, not elsewhere classified Status: Acute Assessment and Plan: - CTA showing a moderate right pleural effusion - plan for diagnostic thoracentesis this afternoon - BNP 16,000 ECHO showed grade I diastolic dysfunction Continue Lasix S/p thoracentesis and pleural fluid culture negative However pleural protein, glucose and LDH still pending (3) Abdominal ascites: Qualifiers: Ascites type: other type Qualified Code(s): R18.8 - Other ascites Code(s): R18.8 - Other ascites Status: Acute Assessment and Plan: -Ordered US RUQ - CT abdomen/pelvis: Moderate abdominopelvic ascites. Moderate pleural effusion. Questionable 4.6 x 3.0 cm fat attenuation lesion just medial to the left kidney. Consider follow-up exam in 6 months to one year to reassess. - total bilirubin, AST, ALT, alk phos WNL from volume overload (4) Diabetes: Qualifiers: Diabetes mellitus complication detail: without coma Diabetes mellitus complication status: with hypoglycemia Diabetes mellitus long term care phlebotomist insulin use: without group home use Diabetes mellitus type: type 2 Qualified Code(s): E11.649 - Type 2 diabetes mellitus with hypoglycemia without coma Code(s): E11.9 - Type 2 diabetes mellitus without complications Status: Acute Assessment and Plan: hypoglycemia resolved SSI with accucheks, and adjust with clinical course (5) Urinary retention: Code(s): R33.9 - Retention of urine, unspecified Status: Acute Assessment and Plan: - patient has been given lasix with no UOP, bladder scan showing 500+ mL - place lazcano, patient reported to bedside RN that he will not likely keep it in place - UA w/reflex added - flomax daily initiated - will need follow-up with urology outpatient if fails voiding trial (6) HTN (hypertension): Qualifiers: Hypertension type: primary hypertension Qualified Code(s): I10 - Essential (primary) hypertension Code(s): I10 - Essential (primary) hypertension Status: Chronic Assessment and Plan: hold home meds and titrate with clinical course (7) Sleep apnea: Qualifiers: Sleep apnea type: unspecified type Qualified Code(s): G47.30 - Sleep apnea, unspecified Code(s): G47.30 - Sleep apnea, unspecified Status: Chronic Assessment and Plan: - continue home BiPAP Plan Diet: heart healthy DVT Prophylaxis: Sq lovenox Lines: Peripheral Code Status: Full Code Subjective Date/time seen: 11/14/23 10:49 Interval history: Repeat CT performed yesterday shows moderate-size right side and small left pleural effusion. Pleural st
--- NOTE | 2023-11-14 10:53 | PM.PNCARD ---
Progress Note: A&P Assessment and Plan (1) Acute heart failure with preserved ejection fraction (HFpEF): Code(s): I50.31 - Acute diastolic (congestive) heart failure Status: Acute Assessment and Plan: Continue with Lasix 40mg IV BID for now. With his right ventricular enlargement, morbid obesity, sleep apnea, ascites; his volume overload is likely secondary to right-sided failure with some contribution from left-sided diastolic dysfunction. Continue Jardiance. Will give another dose of Metolazone today 5 mg PO x 1 (2) Acute respiratory failure with hypoxia and hypercapnia: Code(s): J96.01 - Acute respiratory failure with hypoxia; J96.02 - Acute respiratory failure with hypercapnia Status: Acute Assessment and Plan: Wean oxygen as tolerated. Pulmonary has been consulted as well. (3) HTN (hypertension): Qualifiers: Hypertension type: primary hypertension Qualified Code(s): I10 - Essential (primary) hypertension Code(s): I10 - Essential (primary) hypertension Status: Chronic Assessment and Plan: Continue Enalapril. If he needs additional blood pressure control, would recommend Spironolactone (4) Diabetes: Qualifiers: Diabetes mellitus type: type 2 Diabetes mellitus ad terminal makeup operator insulin use: without ad terminal makeup operator use Diabetes mellitus complication status: with hypoglycemia Diabetes mellitus complication detail: without coma Qualified Code(s): E11.649 - Type 2 diabetes mellitus with hypoglycemia without coma Code(s): E11.9 - Type 2 diabetes mellitus without complications Status: Acute Assessment and Plan: Hgb A1c is 9.2. Management as per primary team. Patient is on Pioglitazone at home. Given heart failure, recommend that Pioglitazone be discontinued completely. Recommend referral to outpatient Endocrinology for long-term management of his diabetes. (5) CKD (chronic kidney disease): Code(s): N18.9 - Chronic kidney disease, unspecified Status: Acute Assessment and Plan: Baseline SCr levels not known. However, his SCr is improving with diuresis. POLO now resolved. Plan Recommendations and plan discussed with Hospitalist. Subjective Date/time seen: 11/14/23 10:53 Interval history: Reason for visit: HFpEF, right heart failure HPI: We are consulted for CHF. This is a 63 year old male with hypertension, hyperlipidemia, ALEXANDRO, type 2 diabetes mellitus, GERD who was admitted on 11/05/2023 for shortness of breath, generalized weakness, requiring BIPAP and now high flow nasal cannula. Has been having shortness of breath over the past few months, worsening over the past week. Initial chest CTA on admission showed moderate right pleural effusion with extensive right middle lobe atelectasis, small amount of abdominal ascites. He underwent a thoracentesis on 11/04 with removal of 700ccs of fluid. CXR 11/06 shows persistent airspace opacities in the right middle lung, consistent with atelectasis versus pneumonia. NT pro BNP 16,000 on admission. Troponins are 0.245, 0.260, 0.260. EKG with sinus rhythm, incomplete right bundle branch block, nonspecific T wave abnormality. He states his breathing is feeling better now and denies shortness of breath at rest, however, he remains on high flow nasal cannula. Echocardiogram 11/05/2023 shows LV hypertrophy with well-preserved systolic function, moderately enlarged RV, mild biatrial dilation, small amount of MR/TR. Date of service 11/08: He states that he feels a little bit better and is less short of breath. No chest pain. Date of service 11/09: Diuresing well now. Feeling bit better. Legs feel less tight. Date of service 11/11/2023: Still diuresing. Abdomen feels a little less distended. Scrotal edema noted. Legs are still swollen. Date of service 11/11: Still diuresing well. Date of service 11/13/2023: Lower extremity edema improved. Reports less shortness of breath but still has some orthopnea and on
[2023-11-14] MEDS: metOLazone 5 MG TABLET PO (11:51)
[2023-11-14 11:52] LABS: Glucose Point of Care 153 mg/dl (65-105)
[2023-11-14] MEDS: ACETYLCYSTEINE 20% INHAL SOLN 800 MG/4 ML VIAL 200 MG INHALATION ×2 (13:29→20:13)
[2023-11-14 15:41] LABS: Glucose Point of Care 212 mg/dl (65-105)
[2023-11-14 16:04] LABS: Glucose Pleural Fluid 89 mg/dL; LDH Pleural Fluid 155 U/L; Total Protein Pleural Fluid <3.0 g/dL
[2023-11-14] MEDS: INSULIN ASPART (*BKC) 100 UNITS/ML SUB-Q (16:38)
[2023-11-14] MEDS: MELATONIN 3 MG TABLET PO (20:09)
[2023-11-14 20:53] LABS: Glucose Point of Care 180 mg/dl (65-105)
[2023-11-15] VITALS (26 sets, daily range): BP systolic 93–121; BP diastolic 44–61; PULSE 80–101; RESP 16–24; TEMP 36.1–36.6; O2SAT 90–100
[2023-11-15] MEDS: IPRATROPIUM 0.5 MG/ALBUTEROL SULFATE 2.5 MG AMPUL.NEB 3 ML INHALATION ×4 (02:38→20:01)
[2023-11-15] MEDS: ACETYLCYSTEINE 20% INHAL SOLN 800 MG/4 ML VIAL 200 MG INHALATION ×4 (02:38→20:01)
[2023-11-15 04:48] LABS: Hemoglobin 9.9 g/dL (14.0-18.0); Mean Corpuscular Hemoglobin 25.1 pg (26-34); Mean Corpuscular Volume 83.8 fl (80-100); Mean Platelet Volume 9.6 fl (7.4-10.4); Platelet Count Result 143 k/mm3 (150-375); Red Blood Count 3.94 M/mm3 (4.6-6.20); Red Cell Distribution Width 15.9 % (11.5-14.5); White Blood Count 7.6 K/mm3 (4.5-10.0)
[2023-11-15 05:05] LABS: Alanine Aminotransferase 25 U/L (6-50); Albumin Level 3.4 g/dL (3.5-5.1); Alkaline Phosphatase 72 U/L (38-126); Aspartate Amino Transferase 40 U/L (17-59); Bilirubin,Total 0.9 mg/dL (0.2-1.3); Blood Urea Nitrogen 15 mg/dL (9-20); Calcium 8.7 mg/dL (8.4-10.2); Carbon Dioxide > 40 mmol/L (22-30); Chloride 81 mmol/L (98-107); Estimated CRCL calculation 88 ml/min; Estimated Glomerular Filt Rate > 60; Glucose 140 mg/dL (65-110); Potassium 2.9 mmol/L (3.4-5.0); Sodium 132 mmol/L (137-145)
[2023-11-15] MEDS: FLUTICASONE PROP 44 MCG (*SP) 10.6 GM 2 PUFF INHALATION ×2 (07:27→20:01)
[2023-11-15 08:16] LABS: Glucose Point of Care 149 mg/dl (65-105)
[2023-11-15] MEDS: ENOXAPARIN 40 MG/0.4 ML SYRINGE SUB-Q (08:46)
[2023-11-15] MEDS: SALINE 0.65% NAS SOLN 44 ML BTL 1 SPRAY NASAL (08:46)
[2023-11-15] MEDS: ATORVASTATIN 40 MG TABLET PO (08:47)
[2023-11-15] MEDS: TAMSULOSIN HCL 0.4 MG CAPSULE PO (08:47)
[2023-11-15] MEDS: EMPAGLIFLOZIN 10 MG TABLET PO (08:47)
[2023-11-15] MEDS: TOLNAFTATE 1% POWDER 45 GM BTL 1 APPLIC TOPICAL (08:48)
[2023-11-15] MEDS: POTASSIUM CHLORIDE 20 MEQ ER TABLET 40 MEQ PO (09:32)
--- NOTE | 2023-11-15 09:55 | PM.IMPN ---
Progress Note: A&P Assessment and Plan (1) Acute respiratory failure with hypoxia and hypercapnia: Code(s): J96.01 - Acute respiratory failure with hypoxia; J96.02 - Acute respiratory failure with hypercapnia Status: Acute Assessment and Plan: - chest CTA: No evidence of pulmonary embolus, aortic dissection, or aortic aneurysm. Moderate right pleural effusion with extensive right middle lobe atelectasis. likely from pulm edema CXR this morning showed small pleural effusion.Airspace opacities at the lung bases with improvement on the right, likely atelectasis. prn BiPAP repeat CXR and abg patient everyday smoker, started on nebulizers scheduled and inhaled steroid d/c Rocephin and Azithromycin Pulm consulted recommends: Continue with BiPAP support as ordered. Consider BiPAP support during the day for few hours. Intensify incentive spirometry. Encourage the patient to get out of bed and sit in a chair. Continue nebulized short-acting bronchodilators. Once the atelectasis resolves and FiO2 requirements decrease to around 4-5 liters/minute, we will test the patient on his home CPAP with supplemental oxygen and conduct an ApneaLink study (2) Pleural effusion: Code(s): J90 - Pleural effusion, not elsewhere classified Status: Acute Assessment and Plan: - CTA showing a moderate right pleural effusion - plan for diagnostic thoracentesis this afternoon - BNP 16,000 ECHO showed grade I diastolic dysfunction Continue Lasix S/p thoracentesis and pleural fluid culture negative However pleural protein, glucose and LDH still pending (3) Abdominal ascites: Qualifiers: Ascites type: other type Qualified Code(s): R18.8 - Other ascites Code(s): R18.8 - Other ascites Status: Acute Assessment and Plan: -Ordered US RUQ - CT abdomen/pelvis: Moderate abdominopelvic ascites. Moderate pleural effusion. Questionable 4.6 x 3.0 cm fat attenuation lesion just medial to the left kidney. Consider follow-up exam in 6 months to one year to reassess. - total bilirubin, AST, ALT, alk phos WNL from volume overload (4) Diabetes: Qualifiers: Diabetes mellitus complication detail: without coma Diabetes mellitus complication status: with hypoglycemia Diabetes mellitus oysterman insulin use: without halfway use Diabetes mellitus type: type 2 Qualified Code(s): E11.649 - Type 2 diabetes mellitus with hypoglycemia without coma Code(s): E11.9 - Type 2 diabetes mellitus without complications Status: Acute Assessment and Plan: hypoglycemia resolved SSI with accucheks, and adjust with clinical course (5) Urinary retention: Code(s): R33.9 - Retention of urine, unspecified Status: Acute Assessment and Plan: - patient has been given lasix with no UOP, bladder scan showing 500+ mL - place lazcano, patient reported to bedside RN that he will not likely keep it in place - UA w/reflex added - flomax daily initiated - will need follow-up with urology outpatient if fails voiding trial (6) HTN (hypertension): Qualifiers: Hypertension type: primary hypertension Qualified Code(s): I10 - Essential (primary) hypertension Code(s): I10 - Essential (primary) hypertension Status: Chronic Assessment and Plan: hold home meds and titrate with clinical course (7) Sleep apnea: Qualifiers: Sleep apnea type: unspecified type Qualified Code(s): G47.30 - Sleep apnea, unspecified Code(s): G47.30 - Sleep apnea, unspecified Status: Chronic Assessment and Plan: - continue home BiPAP Plan Diet: heart healthy DVT Prophylaxis: Sq lovenox Lines: Peripheral Code Status: Full Code Subjective Date/time seen: 11/15/23 09:55 Interval history: His chest x-ray has been improved. His testicular swelling has also significantly improved when compared
--- NOTE | 2023-11-15 10:08 | PM.PNPUL ---
Progress Note: A&P Assessment and Plan (1) Acute respiratory failure with hypoxia and hypercapnia: Code(s): J96.01 - Acute respiratory failure with hypoxia; J96.02 - Acute respiratory failure with hypercapnia Status: Acute Assessment and Plan: The patient's respiratory status has improved over the last 24 hours following aggressive pulmonary toilet. A chest x-ray done today showed no right middle lobe atelectasis. Right pleural effusion persists. Currently the patient is on supplemental oxygen at 5 liters/minute. Not very consistent with use of a home CPAP. Plan: Will proceed with ApneaLink while patient using own home CPAP along with supplemental oxygen at night at 5 liters/minute. (2) Pleural effusion: Code(s): J90 - Pleural effusion, not elsewhere classified Status: Acute (3) Diabetes: Qualifiers: Diabetes mellitus type: type 2 Diabetes mellitus technician terminal and repeater insulin use: without technician terminal and repeater use Diabetes mellitus complication status: with hypoglycemia Diabetes mellitus complication detail: without coma Qualified Code(s): E11.649 - Type 2 diabetes mellitus with hypoglycemia without coma Code(s): E11.9 - Type 2 diabetes mellitus without complications Status: Acute (4) Acute heart failure with preserved ejection fraction (HFpEF): Code(s): I50.31 - Acute diastolic (congestive) heart failure Status: Acute Subjective Date/time seen: 11/15/23 10:08 Interval history: Patient stated he is doing better. Gas exchange has improved since he started nebulized mucolytic agent along with incentive spirometry for right middle lobe atelectasis. He has no new respiratory symptoms Review of Systems Review of Systems: All systems reviewed & are unremarkable except as noted in HPI and below (HPI and below) Exam Narrative: GENERAL APPEARANCE: Well developed, well nourished, alert and cooperative, and appears to be in no acute distress while on supplemental oxygen via nasal cannula SKIN: Inspection of the skin reveals no rashes, ulcerations or petechiae. HEENT: Sclerae anicteric and conjunctivae pink and moist. Extraocular movements were intact and pupils were equal, round, and reactive to light. The oral mucosa, hard and soft palate, tongue and posterior pharynx were normal. NECK: Supple. There was no thyroid enlargement, and no tenderness, or masses were felt. CHEST: Normal AP diameter and normal contour without any kyphoscoliosis. LUNGS: Some dullness to percussion and decreased breath sounds at right base posteriorly otherwise clear lungs CARDIAC: There was a regular rate and rhythm without any murmurs, gallops, rubs. ABDOMEN: Soft and nontender with normal bowel sounds. There was no organomegaly. LYMPH NODES: No lymphadenopathy was appreciated in the neck. EXTREMITIES: No cyanosis, clubbing; 1+ pedal edema. NEUROLOGIC: Alert and oriented x 3. Normal affect. Objective Data Vital Signs Vital Signs: Vital Signs - 24 hr 11/14/23 11:53 11/14/23 12:00 11/14/23 12:00 Temperature 36.8 C Pulse Rate 92 95 Respiratory Rate 18 Blood Pressure 118/49 L Pulse Oximetry 98 98 Oxygen Delivery High Flow Nasal Cannula Oxygen Flow Rate 10 Fraction of Inspired Oxygen 11/14/23 13:33 11/14/23 13:54 11/14/23 15:47 Temperature 36.7 C Pulse Rate 81 95 94 Respiratory Rate 20 20 20 Blood Pressure 100/51 L Pulse Oximetry 98 Oxygen Delivery Oxygen Flow Rate Fraction of Inspired Oxygen 11/14/23 14:00 11/14/23 16:00 11/14/23 16:00 Temperature Pulse Rate 95 90 Respiratory Rate Blood Pressure Pulse Oximetry 98 Oxygen Delivery High Flow Nasal Cannula Oxygen Flow Rate 10 Fraction of Inspired Oxygen 11/14/23 18:00 11/14/23 20:14 11/14/23 20:14 Temperature Pulse Rate 93 82 Respiratory Rate 18 Blood Pressure Pulse Oximetry 94 Oxygen Delivery High Flow Nasal Cannula Oxygen Flow Rate 12 Fraction of Ins
--- NOTE | 2023-11-15 10:54 | PM.PNCARD ---
Progress Note: A&P Assessment and Plan (1) Acute heart failure with preserved ejection fraction (HFpEF): Code(s): I50.31 - Acute diastolic (congestive) heart failure Status: Acute Assessment and Plan: Continue with Lasix 40mg IV BID for now. With his right ventricular enlargement, morbid obesity, sleep apnea, ascites; his volume overload is likely secondary to right-sided failure with some contribution from left-sided diastolic dysfunction. Continue Jardiance. (2) Acute respiratory failure with hypoxia and hypercapnia: Code(s): J96.01 - Acute respiratory failure with hypoxia; J96.02 - Acute respiratory failure with hypercapnia Status: Acute Assessment and Plan: Wean oxygen as tolerated. Pulmonary has been consulted as well. (3) HTN (hypertension): Qualifiers: Hypertension type: primary hypertension Qualified Code(s): I10 - Essential (primary) hypertension Code(s): I10 - Essential (primary) hypertension Status: Chronic Assessment and Plan: Continue Enalapril. If he needs additional blood pressure control, would recommend Spironolactone (4) Diabetes: Qualifiers: Diabetes mellitus type: type 2 Diabetes mellitus under seal operator insulin use: without alf use Diabetes mellitus complication status: with hypoglycemia Diabetes mellitus complication detail: without coma Qualified Code(s): E11.649 - Type 2 diabetes mellitus with hypoglycemia without coma Code(s): E11.9 - Type 2 diabetes mellitus without complications Status: Acute Assessment and Plan: Hgb A1c is 9.2. Management as per primary team. Patient is on Pioglitazone at home. Given heart failure, recommend that Pioglitazone be discontinued completely. Recommend referral to outpatient Endocrinology for long-term management of his diabetes. (5) CKD (chronic kidney disease): Code(s): N18.9 - Chronic kidney disease, unspecified Status: Acute Assessment and Plan: Baseline SCr levels not known. However, his SCr is improving with diuresis. POLO now resolved. Plan Recommendations and plan discussed with Hospitalist. Subjective Date/time seen: 11/15/23 10:54 Interval history: Reason for visit: HFpEF, right heart failure HPI: We are consulted for CHF. This is a 63 year old male with hypertension, hyperlipidemia, ALEXANDRO, type 2 diabetes mellitus, GERD who was admitted on 11/05/2023 for shortness of breath, generalized weakness, requiring BIPAP and now high flow nasal cannula. Has been having shortness of breath over the past few months, worsening over the past week. Initial chest CTA on admission showed moderate right pleural effusion with extensive right middle lobe atelectasis, small amount of abdominal ascites. He underwent a thoracentesis on 11/04 with removal of 700ccs of fluid. CXR 11/06 shows persistent airspace opacities in the right middle lung, consistent with atelectasis versus pneumonia. NT pro BNP 16,000 on admission. Troponins are 0.245, 0.260, 0.260. EKG with sinus rhythm, incomplete right bundle branch block, nonspecific T wave abnormality. He states his breathing is feeling better now and denies shortness of breath at rest, however, he remains on high flow nasal cannula. Echocardiogram 11/05/2023 shows LV hypertrophy with well-preserved systolic function, moderately enlarged RV, mild biatrial dilation, small amount of MR/TR. Date of service 11/08: He states that he feels a little bit better and is less short of breath. No chest pain. Date of service 11/09: Diuresing well now. Feeling bit better. Legs feel less tight. Date of service 11/11/2023: Still diuresing. Abdomen feels a little less distended. Scrotal edema noted. Legs are still swollen. Date of service 11/11: Still diuresing well. Date of service 11/13/2023: Lower extremity edema improved. Reports less shortness of breath but still has some orthopnea and on 8L O2. Date of service 11/13: Lower extremity edema
[2023-11-15] MEDS: INSULIN ASPART (*BKC) 100 UNITS/ML SUB-Q (12:21)
[2023-11-15 13:32] LABS: Glucose Point of Care 246 mg/dl (65-105)
[2023-11-15 16:36] LABS: Glucose Point of Care 181 mg/dl (65-105)
[2023-11-15] MEDS: FUROSEMIDE INJ 40 MG/4 ML VIAL IV PUSH (17:03)
[2023-11-15] MEDS: MELATONIN 3 MG TABLET PO (20:22)
[2023-11-15 20:35] LABS: Glucose Point of Care 211 mg/dl (65-105)
--- NOTE | 2023-11-15 22:24 | PC.NURSE ---
Pt requests not to be woken at midnight for assessment/vitals. Apnea-link in progress.
--- NOTE | 2023-11-15 23:17 | PC.NURSE ---
Addendum entered by Sugar Segal RN 11/15/23 23:46: Alerted RT to incident for apnea link reporting Original Note: Tele monitor alarmed patient's O2 saturation dropped to low 80's. RN checked on patient to find patient sitting at side of bed without cpap or nasal cannula in place. Pt stated that he had just been to the bathroom. RN explained that patient needed some sort of oxygen supplement in place. Pt stated that he's not supposed to have anything on. RN attempted to help patient place nasal cannula. Pt stated he would put the cpap back on that he just needed a minute. Pt's O2 saturation continued to drop to the 70's. Pt cursing and frustrated with equipment and states I knew this would fucking happen. Pt then replaced cpap, o2 sats trended back up, and RN left patient sitting at side of bed.
[2023-11-16] VITALS (15 sets, daily range): BP systolic 100–117; BP diastolic 53–55; PULSE 80–106; RESP 20–22; TEMP 36.4–36.8; O2SAT 87–96; BMI 31.4
[2023-11-16 07:04] LABS: Hematocrit 34.8 % (42.0-52.0); Hemoglobin 10.5 g/dL (14.0-18.0); Mean Corpuscular HGB Conc 30.2 g/dl (32-36); Mean Corpuscular Hemoglobin 25.2 pg (26-34); Mean Corpuscular Volume 83.5 fl (80-100); Mean Platelet Volume 9.6 fl (7.4-10.4); Platelet Count Result 149 k/mm3 (150-375); Red Blood Count 4.17 M/mm3 (4.6-6.20); Red Cell Distribution Width 15.9 % (11.5-14.5); White Blood Count 7.1 K/mm3 (4.5-10.0)
[2023-11-16 07:24] LABS: Potassium 3.1 mmol/L (3.4-5.0)
[2023-11-16 07:34] LABS: Alanine Aminotransferase 33 U/L (6-50); Albumin Level 3.5 g/dL (3.5-5.1); Alkaline Phosphatase 78 U/L (38-126); Aspartate Amino Transferase 44 U/L (17-59); Bilirubin,Total 0.8 mg/dL (0.2-1.3); Blood Urea Nitrogen 13 mg/dL (9-20); Calcium 8.5 mg/dL (8.4-10.2); Carbon Dioxide > 40 mmol/L (22-30); Chloride 83 mmol/L (98-107); Estimated CRCL calculation 86 ml/min; Estimated Glomerular Filt Rate > 60; Glucose 149 mg/dL (65-110); Sodium 134 mmol/L (137-145)
[2023-11-16 07:41] LABS: Glucose Point of Care 156 mg/dl (65-105)
[2023-11-16] MEDS: IPRATROPIUM 0.5 MG/ALBUTEROL SULFATE 2.5 MG AMPUL.NEB 3 ML INHALATION (08:00)
[2023-11-16] MEDS: ACETYLCYSTEINE 20% INHAL SOLN 800 MG/4 ML VIAL 200 MG INHALATION (08:00)
[2023-11-16] MEDS: FLUTICASONE PROP 44 MCG (*SP) 10.6 GM 2 PUFF INHALATION (08:13)
[2023-11-16 08:33] LABS: NT Pro B Type Natriuretic Pept 6500 pg/mL (19.9-100)
--- NOTE | 2023-11-16 09:19 | PM.PNCARD ---
Progress Note: A&P Assessment and Plan (1) Acute heart failure with preserved ejection fraction (HFpEF): Code(s): I50.31 - Acute diastolic (congestive) heart failure Status: Acute Assessment and Plan: Will shift to p.o. furosemide today. With his right ventricular enlargement, morbid obesity, sleep apnea, ascites; his volume overload is likely secondary to right-sided failure with some contribution from left-sided diastolic dysfunction. Continue Jardiance. Will give KCL 40 mEq x 1 for K+ 3.1. Discussed importance of fluid restriction. Pt states he will not follow fluid restriction at home as he drinks a lot of soda. Explained the importance of fluid moderation in order to manage his CHF. (2) Acute respiratory failure with hypoxia and hypercapnia: Code(s): J96.01 - Acute respiratory failure with hypoxia; J96.02 - Acute respiratory failure with hypercapnia Status: Acute Assessment and Plan: Wean oxygen as tolerated. Pulmonary has been consulted as well. (3) HTN (hypertension): Qualifiers: Hypertension type: primary hypertension Qualified Code(s): I10 - Essential (primary) hypertension Code(s): I10 - Essential (primary) hypertension Status: Chronic Assessment and Plan: Continue Enalapril. If he needs additional blood pressure control, would recommend Spironolactone (4) Diabetes: Qualifiers: Diabetes mellitus complication detail: without coma Diabetes mellitus complication status: with hypoglycemia Diabetes mellitus fci insulin use: without fci use Diabetes mellitus type: type 2 Qualified Code(s): E11.649 - Type 2 diabetes mellitus with hypoglycemia without coma Code(s): E11.9 - Type 2 diabetes mellitus without complications Status: Acute Assessment and Plan: Hgb A1c is 9.2. Management as per primary team. Patient is on Pioglitazone at home. Given heart failure, recommend that Pioglitazone be discontinued completely. Recommend referral to outpatient Endocrinology for long-term management of his diabetes. (5) CKD (chronic kidney disease): Code(s): N18.9 - Chronic kidney disease, unspecified Status: Acute Assessment and Plan: Baseline SCr levels not known. However, his SCr is improving with diuresis. POLO now resolved. Plan Recommendations and plan discussed with Hospitalist. Subjective Date/time seen: 11/16/23 09:19 Interval history: Reason for visit: HFpEF, right heart failure HPI: We are consulted for CHF. This is a 63 year old male with hypertension, hyperlipidemia, ALEXANDRO, type 2 diabetes mellitus, GERD who was admitted on 11/05/2023 for shortness of breath, generalized weakness, requiring BIPAP and now high flow nasal cannula. Has been having shortness of breath over the past few months, worsening over the past week. Initial chest CTA on admission showed moderate right pleural effusion with extensive right middle lobe atelectasis, small amount of abdominal ascites. He underwent a thoracentesis on 11/04 with removal of 700ccs of fluid. CXR 11/06 shows persistent airspace opacities in the right middle lung, consistent with atelectasis versus pneumonia. NT pro BNP 16,000 on admission. Troponins are 0.245, 0.260, 0.260. EKG with sinus rhythm, incomplete right bundle branch block, nonspecific T wave abnormality. He states his breathing is feeling better now and denies shortness of breath at rest, however, he remains on high flow nasal cannula. Echocardiogram 11/05/2023 shows LV hypertrophy with well-preserved systolic function, moderately enlarged RV, mild biatrial dilation, small amount of MR/TR. Date of service 11/08: He states that he feels a little bit better and is less short of breath. No chest pain. Date of service 11/09: Diuresing well now. Feeling bit better. Legs feel less tight. Date of service 11/11/2023: Still diuresing. Abdomen feels a little less distended. Scrotal edema noted. Legs are still swollen.
[2023-11-16] MEDS: ATORVASTATIN 40 MG TABLET PO (09:51)
[2023-11-16] MEDS: TAMSULOSIN HCL 0.4 MG CAPSULE PO (09:51)
[2023-11-16] MEDS: EMPAGLIFLOZIN 10 MG TABLET PO (09:51)
[2023-11-16] MEDS: FUROSEMIDE 20 MG TABLET 60 MG PO (09:57)
[2023-11-16] MEDS: ENOXAPARIN 40 MG/0.4 ML SYRINGE SUB-Q (10:01)
[2023-11-16 10:47] LABS: Glucose Point of Care 216 mg/dl (65-105)
--- NOTE | 2023-11-16 11:13 | PM.PNPUL ---
Progress Note: A&P Assessment and Plan (1) Acute respiratory failure with hypoxia and hypercapnia: Code(s): J96.01 - Acute respiratory failure with hypoxia; J96.02 - Acute respiratory failure with hypercapnia Status: Acute Assessment and Plan: 11/15/23: The patient's respiratory status has improved over the last 24 hours following aggressive pulmonary toilet. A chest x-ray done today showed no right middle lobe atelectasis. Right pleural effusion persists. Currently the patient is on supplemental oxygen at 5 liters/minute. Not very consistent with use of a home CPAP. Plan: Will proceed with ApneaLink while patient using own home CPAP along with supplemental oxygen at night at 5 liters/minute. 11/16/23: Overall the patient tells me he has improved. States he is breathing back at his baseline. denies shortness of breath at rest. States his cough and phlegm production are the same as his baseline. His swelling has improved. He is afebrile. White blood cell count 7.1, creatinine 1.0. When I enter the room he is on 4 L nasal cannula saturation 95%. I decreased him to 3 L and his saturations were 92%. Weight today is listed at 104.9 kg. B[place] [address]281 to 6500 Patient had an overnight oximetry on his home machine with 5 L bleed in. Recording duration 2.5 hours although the patient tells me that he wore the machine for 7 or 8 hours. Average saturation 93%. Low saturation 82%. Time with saturation less than or equal to 88% was 14 minutes and this occurred at the last time of a viable recording. I spoke with the daytime nurse who says that the patient became unhooked and was tangled in his wires last night when the recording stopped. From a pulmonary perspective patient is ready to be discharged on these pulmonary medications: Anoro Ellipta 62.5-25 at 1 puff q.day Guaifenesin 1200 mg p.o. b.i.d. Rescue albuterol 2 puffs q.4 hours p.r.n. shortness of breath or wheezing Oxygen at rest and with ambulation per home O2 assessment which I have ordered. Home CPAP with 5 L bleed in. Diuretics per hospitalist team, currently is on Lasix 40 IV b.i.d.. (2) Pleural effusion: Code(s): J90 - Pleural effusion, not elsewhere classified Status: Acute Assessment and Plan: 11/05/2023: Ultrasound-guided right thoracentesis yielding 700 mils of clear yellow fluid. Pleural LDH 155: Serum LDH 227 ratio equals 0.68. Pleural total protein less than 3: Serum protein 7.0, ratio less than 0.43. G stain with white blood cells and no organisms. Cytology negative, differential neutrophils 6%, lymphocytes 23%, monocytes 13%, macrophages 44%, mesothelial cells 14%. I interpret this effusion as exudative, macrocytic, noninfected, and cytology negative. Chest x-ray on 11/15/2023 with improved right pleural effusion and only with very small bilateral effusions. 11/16/23: Clinically patient is effusions, oxygenation have improved with diuresis. Plan: Patient will need his right pleural effusion followed to determine if there is any reaccumulation. Subjective Date/time seen: 11/16/23 11:13 Interval history: 11/15/23: Patient stated he is doing better. Gas exchange has improved since he started nebulized mucolytic agent along with incentive spirometry for right middle lobe atelectasis. He has no new respiratory symptoms. 11/16/23: Overall the patient tells me he has improved. States he is breathing back at his baseline. denies shortness of breath at rest. States his cough and phlegm production are the same as his baseline. His swelling has improved. He is afebrile. White blood cell count 7.1, creatinine 1.0. When I enter the room he is on 4 L nasal cannula saturation 95%. I decreased him to 3 L and his saturations were 92%. Weight today is listed at 104.9 kg. Patient had an overnight oximetry on his home machine with 5 L bleed in. Recording duration 2.5 hours although the patient tells me that
--- NOTE | 2023-11-16 12:00 | PM.DS ---
DS: Admitting Diagnosis Discharge Date 11/16/2023 Admitting Diagnosis Acute respiratory failure with hypoxia and hypercapnia, Pleural effusion, Abdominal ascites, Hypoglycemia DS: Discharge Diagnosis Discharge Diagnosis (1) Acute respiratory failure with hypoxia and hypercapnia: Code(s): J96.01 - Acute respiratory failure with hypoxia; J96.02 - Acute respiratory failure with hypercapnia Status: Acute Assessment and Plan: - chest CTA: No evidence of pulmonary embolus, aortic dissection, or aortic aneurysm. Moderate right pleural effusion with extensive right middle lobe atelectasis. Pulm consulted recommends: Upon discharge Anoro Ellipta 62.5-25 at 1 puff q.day Guaifenesin 1200 mg p.o. b.i.d. Rescue albuterol 2 puffs q.4 hours p.r.n. shortness of breath or wheezing Oxygen at rest and with ambulation per home O2 assessment which I have ordered. Home CPAP with 5 L bleed in. Diuretics per hospitalist team, currently is on Lasix 40 IV b.i.d.. (2) Pleural effusion: Code(s): J90 - Pleural effusion, not elsewhere classified Status: Acute Assessment and Plan: - CTA showing a moderate right pleural effusion - plan for diagnostic thoracentesis this afternoon - BNP 16,000 ECHO showed grade I diastolic dysfunction Continue Lasix S/p thoracentesis and pleural fluid culture negative However pleural protein, glucose and LDH still pending (3) Abdominal ascites: Qualifiers: Ascites type: other type Qualified Code(s): R18.8 - Other ascites Code(s): R18.8 - Other ascites Status: Acute Assessment and Plan: -Ordered US RUQ - CT abdomen/pelvis: Moderate abdominopelvic ascites. Moderate pleural effusion. Questionable 4.6 x 3.0 cm fat attenuation lesion just medial to the left kidney. Consider follow-up exam in 6 months to one year to reassess. - total bilirubin, AST, ALT, alk phos WNL from volume overload (4) Diabetes: Qualifiers: Diabetes mellitus complication detail: without coma Diabetes mellitus complication status: with hypoglycemia Diabetes mellitus mcfp insulin use: without mcfp use Diabetes mellitus type: type 2 Qualified Code(s): E11.649 - Type 2 diabetes mellitus with hypoglycemia without coma Code(s): E11.9 - Type 2 diabetes mellitus without complications Status: Acute Assessment and Plan: hypoglycemia resolved SSI with accucheks, and adjust with clinical course (5) Urinary retention: Code(s): R33.9 - Retention of urine, unspecified Status: Acute Assessment and Plan: - patient has been given lasix with no UOP, bladder scan showing 500+ mL - place lazcano, patient reported to bedside RN that he will not likely keep it in place - UA w/reflex added - flomax daily initiated - will need follow-up with urology outpatient if fails voiding trial (6) HTN (hypertension): Qualifiers: Hypertension type: primary hypertension Qualified Code(s): I10 - Essential (primary) hypertension Code(s): I10 - Essential (primary) hypertension Status: Chronic Assessment and Plan: hold home meds and titrate with clinical course (7) Sleep apnea: Qualifiers: Sleep apnea type: unspecified type Qualified Code(s): G47.30 - Sleep apnea, unspecified Code(s): G47.30 - Sleep apnea, unspecified Status: Chronic Assessment and Plan: - continue home BiPAP Plan Diet: heart healthy DVT Prophylaxis: Sq lovenox Lines: Peripheral Code Status: Full Code DS: Summary Hospital Course Hospital Course: The patient presents here via EMS for further evaluation of shortness of breath and generalized weakness. Patient reports onset of symptoms approximately 1 week ago. He reports that he has been becoming increasingly short of breath over the last 4 months, however significantly worsened over the last week. Prior to E
[2023-11-16] MEDS: POTASSIUM CHLORIDE 20 MEQ ER TABLET 40 MEQ PO (13:36)
[2023-11-16] MEDS: TOLNAFTATE 1% POWDER 45 GM BTL 1 APPLIC TOPICAL (13:36)
[2023-11-16] MEDS: guaiFENesin 12 HR 600 MG TABCR 1200 MG PO (13:37)
--- NOTE | 2023-11-16 14:10 | HOMEO2EVAL ---
Evaluation was performed at [facility] Home Oxygen Evaluation RC: Home Oxygen (O2) Evaluation Start: 11/16/23 11:28 Freq: ONCE Status: Active Protocol: RPE Activity Type Activity Date Activity User E-sign Co-sign Detail Recorded Client Recorded Date Recorded By Document 11/16/23 13:30 [email or web address] [email or web address] 11/16/23 14:10 DJO Document 11/16/23 13:35 [email or web address] [email or web address] 11/16/23 14:10 DJO Document 11/16/23 13:40 [email or web address] [email or web address] 11/16/23 14:10 DJO Document 11/16/23 13:45 [email or web address] [email or web address] 11/16/23 14:10 DJO Document 11/16/23 13:50 [email or web address] [email or web address] 11/16/23 14:10 DJO Document 11/16/23 14:05 [email or web address] [email or web address] 11/16/23 14:10 DJO 11/16/23 11/16/23 11/16/23 13:30 13:35 13:40 Home O2 Evaluation [Oxygen] -Test Phase Resting Resting Resting -Oxygen Delivery Room Air Nasal Cannula Nasal Cannula -Oxygen Flow Rate (L/min) 1 2 [Pulse Oximetry] -Pulse Oximetry (90-100 %) 87 L 89 L 91 [Pulse Rate] -Pulse Rate (60-100 beats/min) 94 92 92 [Evaluation] -Activity Tolerance -Rate of Perceived Exertion (PE) 8 Query Text:Click the Protocol Button to View the RPE Scale [Charges] -Evaluation Charges O2 Evaluation by Pulmonary 11/16/23 11/16/23 11/16/23 13:45 13:50 14:05 Home O2 Evaluation [Oxygen] -Test Phase Exercise Exercise Resting -Oxygen Delivery Nasal Cannula Nasal Cannula Nasal Cannula -Oxygen Flow Rate (L/min) 2 3 2 [Pulse Oximetry] -Pulse Oximetry (90-100 %) 88 L 90 91 [Pulse Rate] -Pulse Rate (60-100 beats/min) 104 H 106 H 92 [Evaluation] -Activity Tolerance Good -Rate of Perceived Exertion (PE) Query Text:Click the Protocol Button to View the RPE Scale [Charges] -Evaluation Charges
--- NOTE | 2023-11-19 13:40 | PC.NURSE ---
Faxed order to [facility] for nebulizer.
== END 2023-11-16 14:48 | disposition home health service (06) | DRG 291 ==
LOC: ANHED 07:55 → ANHIMU 09:58
PROVIDERS: Emergency Medicine; Internal Medicine; Internal Medicine Pulmonary Disease; Nurse Practitioner; Student in an Organized Health Care Education/Training Program; Admitting Provider Internal Medicine; Emergency Provider Emergency Medicine; Visit Provider General Practice
DX: I13.0 Hypertensive heart and chronic kidney disease with heart failure and stage 1 through stage 4 chronic kidney disease, or unspecified chronic kidney disease (principal); I50.31 Acute diastolic (congestive) heart failure; J96.02 Acute respiratory failure with hypercapnia; J96.01 Acute respiratory failure with hypoxia; J90 Pleural effusion, not elsewhere classified; R18.8 Other ascites; N18.9 Chronic kidney disease, unspecified; E11.649 Type 2 diabetes mellitus with hypoglycemia without coma; E11.65 Type 2 diabetes mellitus with hyperglycemia; E11.22 Type 2 diabetes mellitus with diabetic chronic kidney disease; E78.5 Hyperlipidemia, unspecified; R33.9 Retention of urine, unspecified; F17.210 Nicotine dependence, cigarettes, uncomplicated; Z20.822 Contact with and (suspected) exposure to COVID-19; Z91.199 Patient's noncompliance with other medical treatment and regimen due to unspecified reason
CPT/HCPCS: 32555; 36415; 36600; 70450; 71045; 71250; 71275; 72125; 74176; 76705; 80053; 81001; 82042; 82150; 82375; 82465; 82550; 82805; 82945; 82948; 83036; 83050; 83615; 83735; 83880; 83986; 84155; 84157; 84311; 84439; 84443; 84478; 84484; 85025; 85027; 85610; 85730; 87015; 87040; 87116; 87205; 87206; 87637; 88108; 88305; 89051; 93005; 94002; 94003; 94618; 94640; 94762; 96365; 96367; 96375; 96376; 97110; 97116; 97161; 97165; 97530; 97535; 99285; A9270; C8929; J0456; J0696; J1100; J1650; J1815; J1940; J3475; J7512; Q9957; Q9967

== ENCOUNTER 2023-12-18 13:10 | Outpatient (CLI) | payer MEDICAID, SELFPAY ==
--- NOTE | ~2023-12-18 | XR_ITS ---
Clinical Indication: Pleural effusion PA and lateral views of the chest: Comparison: 11/15/2023 Findings: The lungs are clear, aside from possible mild left basilar atelectatic change. Cardiomedia stinal silhouette is within normal limits. Bones and soft tissues are unremarkable. Impression: Possible mild left basilar atelectatic change, otherwise clear lungs. Reviewed, dictated and finalized at location M. Impression: Possible mild left basilar atelectatic change, otherwise clear lungs.
== END 2023-12-18 13:11 | disposition home or self-care (01) ==
PROVIDERS: Visit Provider Nurse Practitioner Family
DX: J90 Pleural effusion, not elsewhere classified (principal)
CPT/HCPCS: 71046

== ENCOUNTER 2024-02-01 13:06 | Outpatient (CLI) | payer OTHER, MEDICAID, SELFPAY ==
[2024-02-01] VITALS (7 sets, daily range): PULSE 90–102; O2SAT 87–91
--- NOTE | 2024-02-01 13:48 | HOMEO2EVAL ---
Evaluation was performed at [facility] Home Oxygen Evaluation RC: Home Oxygen (O2) Evaluation Start: 02/01/24 13:43 Freq: Status: Active Protocol: RPE Activity Type Activity Date Activity User E-sign Co-sign Detail Recorded Client Recorded Date Recorded By Document 02/01/24 13:00 [email or web address] 02/01/24 13:48 PKH Document 02/01/24 13:05 [email or web address] 02/01/24 13:48 PKH Document 02/01/24 13:10 [email or web address] 02/01/24 13:48 PKH Document 02/01/24 13:15 [email or web address] [email or web address] 02/01/24 13:48 PKH Document 02/01/24 13:20 [email or web address] 02/01/24 13:48 PKH Document 02/01/24 13:25 [email or web address] 02/01/24 13:48 PKH Document 02/01/24 13:40 [email or web address] [email or web address] 02/01/24 13:48 PKH 02/01/24 02/01/24 02/01/24 13:00 13:05 13:10 Home O2 Evaluation [Oxygen] -Test Phase Resting Resting Resting -Oxygen Delivery Room Air Nasal Cannula Nasal Cannula -Oxygen Flow Rate (L/min) 1 2 [Pulse Oximetry] -Pulse Oximetry (90-100 %) 87 L 88 L 90 [Pulse Rate] -Pulse Rate (60-100 beats/min) 90 94 96 [Charges] -Evaluation Charges O2 Evaluation by Pulmonary 02/01/24 02/01/24 02/01/24 13:15 13:20 13:25 Home O2 Evaluation [Oxygen] -Test Phase Exercise Exercise Exercise -Oxygen Delivery Nasal Cannula Nasal Cannula Nasal Cannula -Oxygen Flow Rate (L/min) 2 3 4 [Pulse Oximetry] -Pulse Oximetry (90-100 %) 87 L 88 L 91 [Pulse Rate] -Pulse Rate (60-100 beats/min) 102 H 102 H 101 H [Charges] -Evaluation Charges 02/01/24 13:40 Home O2 Evaluation [Oxygen] -Test Phase Resting -Oxygen Delivery Nasal Cannula -Oxygen Flow Rate (L/min) 2 [Pulse Oximetry] -Pulse Oximetry (90-100 %) 90 [Pulse Rate] -Pulse Rate (60-100 beats/min) 91 [Charges] -Evaluation Charges
--- NOTE | 2024-02-08 20:08 | WPDPFTINT ---
PFT Procedure Performed PFT Procedure Performed Spirometry with Pre/Post Bronchodilator Plethysmography (Lung Vol) Diffusing Cap (DLCO) Flow Vol Loop PFT Interpretation DOS: 02/01/2024 REQUESTING: Alex Valenzuela APRN REASON FOR TESTING: Dyspnea PULMONARY FUNCTION TESTS Results are reliable and reproducible. Repeatability of spirometry FEV1 maneuver pre and post bronchodilator is Grade A. Spirometry: The pre-bronchodilator FEV1 is 1.15 L, 31%, severely decreased. The pre-bronchodilator FVC is 2.53 L, 53%, decreased. The FEV1/FVC ratio is 45%, decreased, consistent with airflow obstruction. After bronchodilator, the FEV1 is 1.28 L, 35%, +12%. The post-bronchodilator FVC is 2.62 L, 55%, +4%. The FEV1/FVC ratio is 49%. This is not a significant response to bronchodilator. Lung volumes: The total lung capacity is 7.39 L, 103%. The residual volume is 4.85 L, 210%, consistent with air trapping. The RV/TLC is 66 % consistent with air trapping. Airway resistance is increased. Diffusion: DLCO is 8.0, 28%, severely decreased. The DLCO/VA is 2.27, 55%, moderately decreased. Flow volume loop: The flow volume loop shows coving of the expiratory limb. IMPRESSION: This study shows a severe obstructive ventilatory impairment without response to bronchodilator, severe air trapping and a severe diffusion impairment. Lack of response to bronchodilator should not preclude use if clinically indicated. There are no prior studies to compare. Cece Kelly MD
== END 2024-02-01 13:07 | disposition home or self-care (01) ==
LOC: ANHPFT 13:07
PROVIDERS: Visit Provider Nurse Practitioner Family
DX: R06.09 Other forms of dyspnea (principal)
CPT/HCPCS: 94060; 94618; 94726; 94729

== ENCOUNTER 2024-04-22 09:30 | Outpatient (RCR) | payer MEDICAID, SELFPAY | END 2024-05-20 14:37 | disposition home or self-care (01) | LOC: ANHCPREHAB 09:30 | PROVIDERS: Visit Provider Internal Medicine Pulmonary Disease | DX: J44.9 Chronic obstructive pulmonary disease, unspecified (principal) | CPT/HCPCS: 94625; G0239 ==